=== PATIENT | male | born 1985 | race Caucasian/White ===

== ENCOUNTER 2018-07-08 12:01 | Emergency (ER) | payer MEDICARE, MEDICAID ==
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
--- OUTSIDE RECORDS SUMMARY | 2018-07-08 12:36 | XMS REPORT | Continuity of Care Document ---
:1985 External Reference #:[id number] Author Name Lorelei Abbasi PA-C Address [address] [place] [address] Care Team Providers Name Role Phone Aileen Thao DR. Care Team Information Billet Heater Unavailable Aileen Thao DR. Primary Care Physician Unavailable Payers Date Identification Numbers Payment Provider Subscriber Policy Number: [id number] [facility] Edin Vicente PayID: [id number] [address] [place] [address] Policy Number: [id number] Medicaid Only 21 And Over Edin Vicente PayID: [id number] [place] [address] Advance Directives Description No Information Available Problems Active Problems Provider Date Impacted cerumen Phillip Licona MD Onset: 11/21/2010 Dysfunction of eustachian tube Phillip Licona MD Onset: 11/21/2010 Middle ear conductive hearing loss Jec Test Onset: 11/21/2010 Sensorineural hearing loss Jec Test Onset: 11/21/2010 Family History Description No Information Available Social History Type Date Description Comments Sex Unknown Occupation Not Currently Working Tobacco Use Start: Unknown Never Smoked Cigarettes Tobacco Use Start: Unknown End: Unknown current.no Tobacco Use Start: Unknown End: Unknown current.no Smokeless Tobacco current.no ETOH Use Negative For Current Alcohol Use [Current Alcohol Use] Tobacco Use Start: Unknown Patient has never smoked Smoking Status Reviewed: 12/10/16 Patient has never smoked Allergies, Adverse Reactions, Alerts Active Allergies Reaction Severity Comments Date Amoxicillin 03/14/2009 Penicillins 03/14/2009 Tagamet 03/14/2009 Paxil 06/10/2017 Xanax 06/10/2017 Medications Active Medications SIG Qnty Indications Ordering Provider Date Anti-Dandruff daily Unknown 1% Shampoo Hydrocortisone as needed Unknown 1% Cream Triamcinolone Acetonide twice a day Unknown 0.1% Cream Ketotifen Fumarate 1 drop to both Unknown 0.025% eyes bid Solution Artificial Tears 1 drop to both Unknown Solution eyes bid Vicks Vaporub as directed Unknown Ointment Acetaminophen take as directed Unknown 325mg Tablets Varun-Gest Antacid 2 tabs PO qid prn Unknown 500mg Chewtabs Blistex as directed Unknown Stick [place] 3 as directed Unknown 1000mg Capsules Loratadine [address] po daily [address] 10mg Multivitamins 1 po daily Aileen Thao DR. Colace qod Aileen Thao DR. 100mg Vitamin D 1 tab po daily Aileen Thao DR. 2,000Units Erythromycin apply to face bid Aileen Thao DR. 2% Gel Hydrocerin Plus as directed Aileen Thao DR. Cream Bacitracin Ointment as needed Aileen Thao DR. Fluticasone Propionate as needed Aileen Thao DR. 50mcg/Act Suspension [place] Carbonate 2 caps tid [address]ileen Thao DR. 300mg Capsules Clonazepam 1 tab twice daily Aileen Thao DR. 0.5mg Tablets History Medications Lip-Guard apply to dry lips Aileen Thao DR. - Ointment twice a day 07/16/2016 Triamcinolone instill 2 sprays 16.5units Aileen Thao DR. - Acetonide into each nostril 12/14/2017 55mcg/Act once daily Inhaler Vascepa 1 po bid Aileen Thao DR. - 1gm Capsules 07/16/2016 Hydroxyzine HCL 1 by mouth 3-[address] - 25mg times a day as 12/14/2017 Tablets needed for itching Abilify 1 po daily Aileen Thao DR. - 5mg Tablets 07/16/2016 Tylenol 8 Hour prn for headache Aileen Thao DR. - 650mg 12/14/2017 Tablets ER Clonazepam 1 tab twice daily Aileen Thao DR. - 0.5-1mg 06/10/2017 Benzamycin Unknown - 5-3% Gel 10/04/2013 Vistaril Unknown - 25mg 01/26/[address] - 1mg 07/16/2016 Eucerin Unknown - 03/20/2010 Nasonex 2 sprays both 3months Unknown - 50mcg/Act nostrils once a 10/04/2013 Suspension day Paxil 2 tabs po daily Aileen Thao DR. - 30mg 07/16/2016 Concerta Unknown - 10/24/2009 Immunizations Description No Information Available Vital Signs Date Vital Result Comment 12/14/2017 10:03am Weight 148.00 lb Weight 67.133 kg Height 58.25 inches 4'10.25" Height in cm's 148.0 cm BMI (Body Mass Index) 30.7 kg/m2 12/10/2016 1:50pm BP Systolic 112 mmHg BP Diastolic 61 mmHg Heart Rate 68 /min Respiratory Rate 17 /min Weight 133.00 lb Weight 60.329 kg Height 58.25 inches 4'10.25" Height in cm's 148.0 cm BMI (Body Mass Index) 27.6 kg/m2 07/16/2016 9:37am BP Systolic 106 mmHg BP Diastolic 64 mmHg Heart Rate 85 /min Weight 162.00 lb Weight 73.483 kg Height 58.25 inches 4'10.25" Height in cm's 148.0 cm BMI (Body Mass Index) 33.6 kg/m2 01/31/2014 10:36am BP Systolic 116 mmHg BP Diastolic 77 mmHg Heart Rate 77 /min Respiratory Rate 16 /min Weight 162.00 lb Weight 73.483 kg Height 58.25 inches 4'10.25" Height in cm's 148.0 cm BMI (Body Mass Index) 33.6 kg/m2 10/04/2013 9:10am BP Systolic 108 mmHg BP Diastolic 74 mmHg Heart Rate 78 /min Respiratory Rate 16 /min Weight 162.00 lb Weight 73.483 kg Height 58.25 inches 4'10.25" Height in cm's 148.0 cm BMI (Body Mass Index) 33.6 kg/m2 04/05/2013 9:10am BP Systolic 129 mmHg BP Diastolic 83 mmHg Heart Rate 78 /min Respiratory Rate 16 /min Height 58.25 inches 4'10.25" Height in cm's 148.0 cm 01/26/2013 9:04am BP Systolic 123 mmHg BP Diastolic 73 mmHg Heart Rate 76 /min Respiratory Rate 16 /min Height 58.25 inches 4'10.25" Height in cm's 148.0 cm 09/29/2012 9:07am BP Systolic 116 mmHg BP Diastolic 83 mmHg Heart Rate 81 /min Respiratory Rate 16 /min Height 58.25 inches 4'10.25" Height in cm's 148.0 cm 03/14/2009 1:38pm BP Systolic 123 mmHg BP Diastolic 83 mmHg Heart Rate 82 /min Respiratory Rate 16 /min Results Description No Information Available Procedures Date Code Description Status 12/14/2017 77179 Removal Wax Impaction Completed 06/10/2017 89585 Tympanometry Completed 06/10/2017 14068 Comprehensive Audiogram Completed 12/10/2016 73511 Removal Wax Impaction Completed 06/11/2016 88204 Removal Wax Impaction Completed 12/12/2015 28437 Tympanometry Completed 12/12/2015 91192 Comprehensive Audiogram Completed 05/22/2015 26332 Removal Wax Impaction Completed 2015 35612 Tracheostomy Completed 04/05/2013 26772 Tympanometry Completed 04/05/2013 41310 Comprehensive Audiogram Completed 01/26/2013 13344 Removal Wax Impaction Completed 10/24/2009 65812 Tympanometry Completed 10/24/2009 70175 Comprehensive Audiogram Completed Encounters Type Date Location Provider Dx Diagnosis Office Visit 06/10/2017 Ronaldo,Cony Elliott H61.23 Impacted cerumen, 10:00a 02/15/07 MD Livan bilateral H90.6 Mixed conductive and sensorineural hearing loss, bilateral Office Visit 12/10/2016 1:30p Cony Higgins 02/15/07 Phillip Elliott H61.23 Tito Licona MD cerumen, bilateral Q90.9 Down syndrome, unspecified Office Visit 07/16/2016 [place],After Phillip Elliott R13.10 Dysphagia, 9:15a 02/15/07 MD Livan unspecified Q90.9 Down syndrome, unspecified Office Visit 12/12/2015 1:45p [place],After 02/15/07 Phillip Elliott H61.23 Impacted MD jorje Licona, bilateral H90.5 Unspecified sensorineural hearing loss H90.0 Conductive hearing loss, bilateral Office Visit 08/09/2014 2:15p [place],After 02/15/07 Phillipradha Elliott 380.4 Impacted MD Livan Cerumeyemi / Wax Office Visit 01/31/2014 10:15a [place],After 02/15/07 Phillipradha Elliott 380.4 Impacted MD Livan Cerumen / Wax Office Visit 10/04/2013 9:15a [place],After 02/15/07 Phillip Elliott 380.4 Impacted MD Livan Cerumen / Wax Office Visit 04/05/2013 9:00a [place],After 02/15/07 Phillipradha Elliott 380.4 Impacted MD Livan Cerumeyemi / Wax 389.10 Hearing Loss, Sensorineural/Unspecified 389.03 Hearing Loss, Conductive/Middle Ear Office Visit 09/29/2012 9:00a [place],After 02/15/07 Phillip Elliott 380.4 Impacted MD Livan Cerumen / Wax Office Visit 03/31/2012 9:00a [place],After 02/15/07 Phillipradha Elliott 380.4 Impacted MD Livan Cerumen / Wax Office Visit 09/24/2011 9:45a [facility],After 02/15/07 Phillipradha Elliott 380.4 Impacted MD Livan Cerumen / Wax Office Visit 03/26/2011 9:00a [place],After 02/15/07 Phillipradha Elliott 380.4 Impacted MD Livan Cerumen / Wax Office Visit 09/17/2010 10:15a [place],After 02/15/07 Phillipradha Elliott 380.4 Impacted MD Livan Cerumen / Wax Office Visit 03/20/2010 9:15a [place],After 02/15/07 Phillip Licona MD Office Visit 10/24/2009 9:30a [facility],After 02/15/07 Phillip Elliott 380.4 Impacted MD Jorje Licona / Dot 381.81 Dysfunction Of Eustachian Tube 389.03 Hearing Loss, Conductive/Middle Ear 389.10 Hearing Loss, Sensorineural/Unspecified Office Visit 04/18/2009 3:45p [place],After 02/15/07 Phillip Licona MD Office Visit 03/29/2009 9:00a [facility],After 02/15/07 Phillip Licona MD Office Visit 03/14/2009 1:30p [facility],After 02/15/07 Phillip Elliott 380.4 MD Ruthie Pittmanumen / Dot Plan of Treatment No Information Available
[2018-07-08 12:47] LABS: ABS Basophils 0.1 10^3/ul (0-0.2); ABS Lymphocytes 0.9 10^3/ul (1.0-4.8); ABS Monocytes 0.4 10^3/ul (0-0.8); ABS Neutrophils 7.5 10^3/ul (1.5-7.7); Eosinophil % 0.1 %; Hematocrit 44 % (42-52); Hemoglobin 14.8 g/dL (14.0-18.0); Lymphocyte % 10.2 %; Mean Corpuscular HGB Conc 34 g/dL (31-36); Mean Corpuscular Hemoglobin 33 pg (27-31); Mean Corpuscular Volume 98 fL (80-94); Mean Platelet Volume 6.7 fL (7.4-10.4); Platelet Count 416 10^3/uL (150-450); Red Blood Count 4.46 10^6 /uL (4.18-5.48); Red Cell Distribution Width 13 % (10.5-15); White Blood Count 8.9 10^3/uL (3.5-10.8)
[2018-07-08 13:07] LABS: ALT 17 U/L (7-52); AST 21 U/L (13-39); Albumin 4.7 g/dL (3.2-5.2); Albumin/Globulin Ratio 1.5 (1-3); Alkaline Phosphatase 86 U/L (34-104); Anion Gap 8 mmol/L (2-11); BUN/Creatinine Ratio 12.1 (8-20); Blood Urea Nitrogen 11 mg/dL (6-24); C Reactive Protein 8.79 mg/L (<8.01); CO2 Carbon Dioxide 28 mmol/L (22-32); Calcium 10.6 mg/dL (8.6-10.3); Chloride 102 mmol/L (101-111); EGFR African American 117.6 (>60); EGFR Non-African American 97.2 (>60); Globulin 3.2 g/dL (2-4); Glucose 114 mg/dL (70-100); Potassium 4.3 mmol/L (3.5-5.0); Sodium 138 mmol/L (135-145); Total Protein 7.9 g/dL (6.4-8.9)
[2018-07-08 13:17] LABS: Acetaminophen < 15 mcg/mL; Alcohol < 10 mg/dL (<10); Lithium 1.16 mmol/L (0.6-1.2); Salicylate < 2.50 mg/dL (<30)
[2018-07-08 13:31] LABS: TSH (Thyroid Stimulating Horm) 3.33 mcIU/mL (0.34-5.60)
[2018-07-08] MEDS ORDERED: Acetaminophen TAB* 325 MG PO ONE (17:26)
[2018-07-08] MEDS ORDERED: Lithium Carbonate TAB* 300 MG PO ONE (17:27)
[2018-07-08] MEDS ORDERED: diPHENhydraMINE IV* 50 MG/ML 1 ml VIAL (BENADRYL) IM ONE (18:14)
[2018-07-08] MEDS ORDERED: Haloperidol INJ IV/IM* 5 MG/ML AMP IM ONE (18:14)
[2018-07-08] MEDS ORDERED: Lorazepam PYXIS KEY PRN (18:15)
[2018-07-08] MEDS ORDERED: LORazepam INJ* 2 MG/ML 1 ML VIAL IM ONE (18:15)
[2018-07-08 22:58] VITALS: BP 93/52
== END 2018-07-08 22:55 | disposition home or self-care (01) ==
LOC: ED 12:01
DX: F39 Unspecified mood [affective] disorder (principal); R45.1 Restlessness and agitation; R51 Headache; R01.1 Cardiac murmur, unspecified; Q90.9 Down syndrome, unspecified; F41.9 Anxiety disorder, unspecified; F32.9 Major depressive disorder, single episode, unspecified; Z88.0 Allergy status to penicillin; Z88.8 Allergy status to other drugs, medicaments and biological substances
CPT/HCPCS: 36415; 71045; 80053; 80178; 80320; 80329; 84443; 85025; 86140; 96372; 99285; A9270-GY; G0480; J1200; J1630; J2060

== ENCOUNTER 2018-07-23 04:08 | Emergency (ER) | payer MEDICARE, MEDICAID ==
--- NOTE | 2018-07-23 04:24 | ED ---
Headache - HPI Summary HPI Summary: LEVEL 5 CAVEAT: HPI LIMITED DUE TO PT CONDITION, KEVIN'S A 33 y/o M brought in by ambulance presents to ED c/o SAUNDERS onset 1.5 weeks ago. Per caregiver: Patient has been complaining of SAUNDERS for 1.5 weeks. Hes been pulling his hair and has a red spot on his scalp first noticed today. He also has not been sleeping well for the past 1.5 weeks. Denies fever, dental pain. No witnessed trauma. At bedside, he states 'No' when asked if anything hurts. 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 Onset/Duration: Started weeks ago - 1.5 weeks Associated Signs And Symptoms: Other (Noted In Comments) - pos: SAUNDERS - Allergies/Home Medications Allergies/Adverse Reactions: Allergies Allergy/AdvReac Type Severity Reaction Status Date / Time alprazolam [From Xanax] Allergy Unknown Verified 07/08/18 12:16 Reaction Details cimetidine [From Tagamet] Allergy Unknown Verified 07/08/18 12:16 Reaction Details paroxetine [From Paxil] Allergy Unknown Verified 07/08/18 12:16 Reaction Details Penicillins Allergy Unknown Verified 07/08/18 12:16 Reaction Details PMH/Surg Hx/FS Hx/Imm Hx Previously Healthy: No Endocrine/Hematology History: Denies: Hx Anticoagulant Therapy, Hx Diabetes, Hx Thyroid Disease Cardiovascular History: Reports: Other Cardiovascular Problems/Disorders - HEART MURMUR Denies: Hx Congestive Heart Failure, Hx Deep Vein Thrombosis, Hx Hypertension , Hx Myocardial Infarction, Hx Pacemaker/ICD Respiratory History: Reports: Other Respiratory Problems/Disorders - RESP FAILURE 01/2015 Denies: Hx Asthma, Hx Chronic Obstructive Pulmonary Disease (COPD), Hx Lung Cancer, Hx Pneumonia, Hx Pulmonary Embolism GI History: Denies: Hx Gall Bladder Disease, Hx Gastrointestinal Bleed, Hx Ulcer, Hx Urosepsis History: Denies: Hx Kidney Stones, Hx Renal Disease Musculoskeletal History: Reports: Hx Scoliosis Sensory History: Reports: Hx Cataracts - removed as inmfant Opthamlomology History: Reports: Hx Cataracts - removed as inmfant Neurological History: Reports: Hx Developmental Delay - Downs syndrome Denies: Hx Dementia, Hx Migraine, Hx Seizures, Hx Transient Ischemic Attacks (TIA) Psychiatric History: Reports: Hx Anxiety, Hx Bipolar Disorder - He has aggression with this., Hx of Violent Episodes Against Others Denies: Hx Eating Disorder, Hx Depression, Hx Schizophrenia - Surgical History Surgery Procedure, Year, and Place: EYE IMPLANTS, thrach Infectious Disease History: No Infectious Disease History: Denies: Hx Hepatitis, Hx Human Immunodeficiency Virus (HIV), Hx of Known/ Suspected MRSA, Hx Tuberculosis, Hx Known/Suspected VRE, Traveled Outside the [place] in Last 30 Days - Family History Known Family History: Positive: Hypertension - father, Diabetes - father - Social History Occupation: Disabled Lives: Shelter Alcohol Use: None Hx Substance Use: No Substance Use Type: Reports: None Hx Tobacco Use: No Smoking Status (MU): Never Smoked Tobacco Review of Systems - ROS Summary Review of Systems Summary: LEVEL 5 CAVEAT: ROS LIMITED DUE TO PT CONDITION, DOWN'S Negative: Fever Positive: Headache All Other Systems Reviewed And Are Negative: No Physical Exam - Summary Physical Exam Summary: Appearance: Well appearing, no pain distress Skin: warm, dry, reflects adequate perfusion Head/face: Syndromic appearing consistent with Downs syndrome, no facial swelling, no jaw tenderness. Patch of alopecia on R apex, small area of erythema on skin, a few broken hairs, no tenderness when touching scalp. Patient will not allow oral exam. Eyes: ATIF, mild horizontal nystagmus ENT: mucous membranes moist Neck: supple, non-tender, no lymphadenopathy Respiratory: CTA, breath sounds present Cardiovascular: RRR, pulses symmetrical Abdomen: deferred Bowel Sounds: present Musculoskeletal: normal, strength/ROM intact Neuro: normal, sensory motor intact, A&Ox3 GCS: 14, patient is at baseline Triage Information Reviewed: Yes Vital Signs On Initial Exam: Initial Vitals Temp Pulse Resp BP Pulse Ox 98.6 F 75 18 146/94 94 07/23/18 04:10 07/23/18 04:10 07/23/18 04:10 07/23/18 04:10 07/23/18 04:10 Vital Signs Reviewed: Yes Diagnostics - Vital Signs Vital Signs Temp Pulse Resp BP Pulse Ox 07/23/18 04:10 98.6 F 75 18 146/94 94 - Laboratory Lab Statement: Any lab studies that have been ordered have been reviewed, and results considered in the medical decision making process. Headache Course/Dx - Course Course Of Treatment: Nurse's noted reviewed. Patient is comfortable without fever. He has no tenderness at the site of his hair pulling. His ears are negative and his jaw is nontender without adenopathy. He would not permit a dental exam. He would also not permit a CT scan which I would consider low yield. It is recommended that he be evaluated by a doctor that he knows and trusts that may be able to get a more complete exam. There is nothing that appears to be making him uncomfortable at this time. - Diagnoses Differential Diagnosis/HQI/PQRI: Other - Ear infection, dental infection, sinus infection, foreign body or tick bite, head injury Provider Diagnoses: Trichotillomania, Down syndrome, Headache Discharge - Sign-Out/Discharge Documenting (check all that apply): Patient Departure - D/C Patient Received Moderate/Deep Sedation with Procedure: No - Discharge Plan Condition: Improved Disposition: HOME Patient Education Materials: Down Syndrome (DC), Acute Headache (ED) Referrals: Aileen Richards MD [Primary Care Provider] - Additional Instructions: Try distraction techniques in terms of him pulling on his hair. Ibuprofen as needed. Return with fevers, vomiting, pain, new symptoms or other concerns. Follow up promptly with his primary care doctor on Wednesday. - Billing Disposition and Condition Condition: IMPROVED Disposition: Home - Attestation Statements Document Initiated by Mitesh: Yes Documenting Scribe: Elle Mcdermott Provider For Whom Mitesh is Documenting (Include Credential): Dr. Edwardo Chan MD Scribe Attestation: Elle Marie scribed for Dr. Edwardo Chan MD on 07/23/18 at 0509. Scribe Documentation Reviewed: Yes Provider Attestation: The documentation as recorded by the Elle santoro accurately reflects the service I personally performed and the decisions made by me, Dr. Edwardo Chan MD Status of [place] Document: Viewed
[2018-07-23] MEDS ORDERED: Lidocaine 2.5%/Prilocain 2.5%* 5 GM TUBE TOPICAL ONE (04:29)
[2018-07-23] MEDS ORDERED: Ibuprofen PED LIQ 100 MG/5 ML UDC PO ONE (04:29)
[2018-07-23 04:54] VITALS: BP 0/0
== END 2018-07-23 04:53 | disposition home or self-care (01) ==
LOC: ED 04:08
DX: R51 Headache (principal); F63.3 Trichotillomania; Q90.9 Down syndrome, unspecified; Z88.0 Allergy status to penicillin; Z88.8 Allergy status to other drugs, medicaments and biological substances
CPT/HCPCS: 99282; A9270-GY

== ENCOUNTER 2019-01-13 17:24 | Emergency (ER) | payer MEDICARE ==
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
[2019-01-13 19:02] VITALS: BP 131/83
[2019-01-13] MEDS ORDERED: LORazepam TAB(*) 1 MG PO ONE (19:33)
--- OUTSIDE RECORDS SUMMARY | 2019-01-17 15:13 | XMS REPORT | Continuity of Care Document ---
:1985 External Reference #:[id number] Author Name Waldo Benton M.D. Address [address] [place] [address] Care Team Providers Name Role Phone Aileen Valderrama M.D. Care Team Information Web Manager [phone] Problems Active Problems Provider Date Pure hypercholesterolemia Waldo eBnton M.D. Onset: 01/05/2019 Other adverse food reactions, not elsewhere Waldo Benton M.D. Onset: 2018 classified, subsequent encounter Adverse effect of penicillins, initial encounter Waldo Benton M.D. Onset: Allergic rhinitis due to pollen Wlado Benton M.D. Onset: 01/05/2019 Social History Type Date Description Comments Sex Unknown ETOH Use Denies alcohol use Tobacco Use Start: Unknown Patient has never smoked Recreational Drug Use Denies Drug Use Allergies, Adverse Reactions, Alerts Active Allergies Reaction Severity Comments Date Amoxicillin Unknown 01/05/2019 Tagamet 01/05/2019 Penicillin 01/05/2019 Paxil serotonin syndrome 01/05/2019 Xanax 01/05/2019 Haldol 01/05/2019 Medications Active Medications SIG Qnty Indications Ordering Provider Date Bacitracin (External) Unknown 500Unit/GM Ointment Varun-Gest Antacid Unknown 500mg Chewtabs Tylenol 8 Hour 325mg bid every 6 Unknown 650mg hours as needed Tablets ER Mucinex 2 by mouth every Unknown 600mg Tablets ER 12 hours 12HR Anti-Dandruff Unknown 1% Shampoo [place] Carbonate Unknown 300mg Capsules Vitamin D3 Unknown 50mcg (2000 Ut) Capsules Loratadine take one 10 mg Unknown 10mg Capsules tab daily Lamotrigine bid Unknown 25mg Tablets Immunizations CPT Code Status Date Vaccine Lot # [id number] Given Unknown Influenza Virus Vaccine, Quadrivalent, Split, Preservative Free 28153 Given Unknown Pneumococcal Conjugate Vaccine 13 Valent For Intramuscular Use Vital Signs Date Vital Result Comment 01/05/2019 1:48pm Height 57 inches 4'9" Weight 136.00 lb Weight 61.690 kg Respiratory Rate 18 /min Heart Rate 65 /min O2 % BldC Oximetry 97 % BP Systolic 107 mmHg BP Diastolic 66 mmHg BMI (Body Mass Index) 29.4 kg/m2 Results Description No Information Available Procedures Description No Information Available Medical Devices Description No Information Available Encounters Type Date Location Provider Dx Diagnosis Office Visit 01/05/2019 [facility] Waldo Benton M.D. J30.1 Allergic rhinitis 1:20p due to pollen T36.0x5A Adverse effect of penicillins, initial encounter T78.1xxD Oth adverse food reactions, not elsewhere classified, subs Assessments Date Code Description Provider 01/05/2019 J30.1 Allergic rhinitis due to pollen Waldo Benton M.D. 01/05/2019 T36.0x5A Adverse effect of penicillins, initial Waldo Benton M.D. encounter 01/05/2019 T78.1xxD Other adverse food reactions, not elsewhere Waldo Benton M.D. classified, subsequent encounter Plan of Treatment No Information Available Functional Status Description No Information Available Mental Status Description No Information Available Referrals Description No Information Available
== END 2019-01-13 22:00 | disposition home or self-care (01) ==
LOC: ED 17:24
DX: R45.1 Restlessness and agitation (principal); Q90.9 Down syndrome, unspecified; F84.0 Autistic disorder; F41.9 Anxiety disorder, unspecified; F31.9 Bipolar disorder, unspecified; Z88.0 Allergy status to penicillin; Z88.8 Allergy status to other drugs, medicaments and biological substances
CPT/HCPCS: 99282; A9270-GY

== ENCOUNTER 2019-02-05 22:39 | Emergency (ER) | payer MEDICARE ==
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
[2019-02-05] MEDS: LORazepam TAB(*) 1 MG PO ONE ×2 (23:33→23:59)
[2019-02-05] MEDS ORDERED: Lorazepam PYXIS KEY ONE (23:46)
[2019-02-05] MEDS ORDERED: LORazepam INJ* 2 MG/ML 1 ML VIAL ONE (23:46)
[2019-02-05] MEDS ORDERED: LORazepam INJ* 2 MG/ML 1 ML VIAL IM ONE ×2 (23:50→23:51)
[2019-02-05] MEDS ORDERED: Lorazepam PYXIS KEY PRN (23:51)
[2019-02-06] MEDS ORDERED: Acetaminophen TAB* 325 MG PO ONE (00:19)
[2019-02-06 01:23] VITALS: BP 128/85
== END 2019-02-06 01:22 | disposition home or self-care (01) ==
LOC: ED 22:39
DX: R51 Headache (principal); Q90.9 Down syndrome, unspecified; F79 Unspecified intellectual disabilities; F31.9 Bipolar disorder, unspecified; Z88.0 Allergy status to penicillin; Z88.8 Allergy status to other drugs, medicaments and biological substances
CPT/HCPCS: 96372; 99283; A9270-GY; J2060

== ENCOUNTER 2019-02-20 12:43 | Emergency (ER) | payer MEDICARE, MEDICAID ==
[2019-02-20 13:11] VITALS: BP 00/00
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
[2019-02-20] MEDS ORDERED: Tetan/Diph/Pertus SYR(Tdap)* 0.5 ML SYR(BOOSTRIX) use SYR contains LATEX IM ONE (13:43)
== END 2019-02-20 14:04 | disposition home or self-care (01) ==
LOC: UCEAST 12:43
DX: S49.91XA Unspecified injury of right shoulder and upper arm, initial encounter (principal); Z88.8 Allergy status to other drugs, medicaments and biological substances; Z88.0 Allergy status to penicillin; Z91.041 Radiographic dye allergy status
CPT/HCPCS: 90715; 99211; G0463

== ENCOUNTER 2019-08-21 09:43 | Observation (INO) ==
[2019-08-21 10:14] LABS: ABS Basophils 0.1 10^3/ul (0-0.2); ABS Eosinophils 0.1 10^3/ul (0-0.6); ABS Lymphocytes 1.7 10^3/ul (1.0-4.8); ABS Monocytes 0.7 10^3/ul (0-0.8); Eosinophil % 0.7 %; Hematocrit 46 % (42-52); Hemoglobin 15.5 g/dL (14.0-18.0); Lymphocyte % 12.7 %; Mean Corpuscular HGB Conc 34 g/dL (31-36); Mean Corpuscular Hemoglobin 33 pg (27-31); Mean Corpuscular Volume 98 fL (80-94); Mean Platelet Volume 6.6 fL (7.4-10.4); Platelet Count 429 10^3/uL (150-450); Red Blood Count 4.63 10^6 /uL (4.18-5.48); Red Cell Distribution Width 14 % (10-15); White Blood Count 13.4 10^3/uL (3.5-10.8)
[2019-08-21] MEDS ORDERED: Sterile Water for Inj 10 ML ONE (10:20)
[2019-08-21 10:27] LABS: ALT 22 U/L (7-52); AST 25 U/L (13-39); Albumin 4.8 g/dL (3.2-5.2); Albumin/Globulin Ratio 1.5 (1-3); Alkaline Phosphatase 120 U/L (34-104); Anion Gap 10 mmol/L (2-11); BUN/Creatinine Ratio 13.2 (8-20); Blood Urea Nitrogen 15 mg/dL (6-24); CO2 Carbon Dioxide 26 mmol/L (22-32); Calcium 10.5 mg/dL (8.6-10.3); Chloride 101 mmol/L (101-111); EGFR African American 90.1 (>60); EGFR Non-African American 74.4 (>60); Globulin 3.2 g/dL (2-4); Glucose 128 mg/dL (70-100); Potassium 4.4 mmol/L (3.5-5.0); Sodium 137 mmol/L (135-145)
[2019-08-21 10:59] LABS: Alcohol, S < 10 mg/dL (<10); Salicylate < 2.50 mg/dL (<30)
[2019-08-21] MEDS ORDERED: NS 0.9% 1000 ml BAG 1,000 ML IV ONE (11:01)
[2019-08-21 11:04] LABS: Acetaminophen < 15 mcg/mL
[2019-08-21 11:09] LABS: TSH (Thyroid Stimulating Horm) 6.27 mcIU/mL (0.34-5.60)
[2019-08-21 11:45] LABS: Urine Appearance Clear; Urine Bilirubin Negative (Negative); Urine Blood Negative (Negative); Urine Color Yellow; Urine Glucose Negative (Negative); Urine Ketones Trace (Negative); Urine Nitrite Negative (Negative); Urine Protein 1+(30 mg/dL) (Negative); Urine Specific Gravity 1.014 (1.010-1.030); Urine Urobilinogen Negative (Negative)
[2019-08-21 11:47] LABS: Urine Bacteria Absent (Absent); Urine Red Blood Cell Trace(0-2/hpf) (Absent); Urine Squamous Epithelial Cell Present (Absent); Urine White Blood Cell Trace(0-5/hpf) (Absent)
[2019-08-21 12:00] LABS: Urine Benzodiazepine Screen Presumptive Positive (None Detect); Urine Opiates Screen None Detected (None Detect)
[2019-08-21] MEDS ORDERED: diPHENhydraMINE IV 50 MG/ML 1 ml VIAL (BENADRYL) SLOW PUSH ONE (12:23)
[2019-08-21] MEDS ORDERED: Lorazepam PYXIS KEY PRN ×2 (13:54→21:56)
[2019-08-21] MEDS ORDERED: LORazepam 2 mg VIAL 1 ml IM ONE (13:54)
[2019-08-21] MEDS ORDERED: Lorazepam PYXIS KEY ONE (13:56)
[2019-08-21] MEDS ORDERED: LORazepam 2 mg VIAL 1 ml ONE (13:57)
[2019-08-21] MEDS ORDERED: Ondansetron 4 mg VIAL 2 MG/ML 2 ml VIAL IV PRN (17:37)
[2019-08-21] MEDS ORDERED: Senna TAB 8.6 mg TAB PO PRN (17:37)
[2019-08-21] MEDS ORDERED: NS 0.9% 1000 ml BAG 1,000 ML IV SCH (17:45)
[2019-08-21] MEDS ORDERED: LORazepam 1 mg TAB (*) PO PRN (18:03)
[2019-08-21 19:05] LABS: Free T4 0.97 ng/dL (0.61-1.12)
[2019-08-21] MEDS ORDERED: LORazepam 2 mg VIAL 1 ml IV PUSH ONE (21:56)
[2019-08-21] MEDS: LORazepam 1 mg TAB (*) PO SCH (22:01)
[2019-08-21] MEDS: lamoTRIgine 25 mg TAB (*) PO SCH (22:02)
[2019-08-21] MEDS: CMC:Lithium Carb ER 300 mg TAB(NF) PO SCH (22:31)
[2019-08-22 08:20] VITALS: BP 136/74
[2019-08-22] MEDS ORDERED: Fluticasone NASAL SPRAY 50MCG 16 gm SPRAY BTL BOTH NARES SCH (09:00)
[2019-08-22] MEDS ORDERED: Multivitamins/Minerals TAB PO SCH (09:00)
[2019-08-22] MEDS: lamoTRIgine 25 mg TAB (*) PO SCH (09:30)
[2019-08-22] MEDS: CMC:Lithium Carb ER 300 mg TAB(NF) PO SCH (09:31)
[2019-08-22] MEDS: LORazepam 1 mg TAB (*) PO SCH (09:32)
[2019-08-22 10:16] LABS: ABS Basophils 0.1 10^3/ul (0-0.2); ABS Eosinophils 0.3 10^3/ul (0-0.6); ABS Lymphocytes 1.2 10^3/ul (1.0-4.8); ABS Monocytes 0.6 10^3/ul (0-0.8); Eosinophil % 2.5 %; Hematocrit 46 % (42-52); Hemoglobin 15.1 g/dL (14.0-18.0); Lymphocyte % 11.2 %; Mean Corpuscular HGB Conc 33 g/dL (31-36); Mean Corpuscular Hemoglobin 34 pg (27-31); Mean Corpuscular Volume 103 fL (80-94); Mean Platelet Volume 6.6 fL (7.4-10.4); Platelet Count 319 10^3/uL (150-450); Red Blood Count 4.49 10^6 /uL (4.18-5.48); Red Cell Distribution Width 14 % (10-15); White Blood Count 10.4 10^3/uL (3.5-10.8)
[2019-08-22 10:31] LABS: Chloride 106 mmol/L (101-111); Sodium 130 mmol/L (135-145)
[2019-08-22] MEDS ORDERED: Lorazepam PYXIS KEY PRN (12:16)
[2019-08-22] MEDS ORDERED: LORazepam 2 mg VIAL 1 ml IV PUSH ONE (12:16)
== END 2019-08-22 13:45 | disposition home or self-care (01) ==
LOC: MED 09:43 → ED 09:43 → MED 18:41
PROVIDERS: ADMIT Hospitalist; ATTEND Internal Medicine

== ENCOUNTER 2020-04-12 09:42 | Inpatient (IN) ==
[2020-04-12] MEDS ORDERED: cefTRIAXone 1 gm/50 mL NS BAG 1 GM/50 ML BAG IV ONE (10:20)
[2020-04-12] MEDS ORDERED: NS 0.9% 1000 ml BAG 1,000 ML IV.FLUID IV ONE (10:20)
[2020-04-12] MEDS ORDERED: Azithromycin 500 mg/250 ml NS 500 MG/250 ML BAG IVPB ONE (10:20)
[2020-04-12 12:29] LABS: ABS Basophils 0.1 10^3/ul (0-0.2); ABS Eosinophils 0.2 10^3/ul (0-0.6); ABS Lymphocytes 1.3 10^3/ul (1.0-4.8); ABS Monocytes 0.9 10^3/ul (0-0.8); ABS Neutrophils 12.3 10^3/ul (1.5-7.7); Eosinophil % 1.1 %; Hematocrit 39 % (42-52); Hemoglobin 12.9 g/dL (14.0-18.0); Lymphocyte % 8.7 %; Mean Corpuscular HGB Conc 33 g/dL (31-36); Mean Corpuscular Hemoglobin 33 pg (27-31); Mean Corpuscular Volume 98 fL (80-94); Mean Platelet Volume 6.5 fL (7.4-10.4); Platelet Count 574 10^3/uL (150-450); Red Blood Count 3.96 10^6 /uL (4.18-5.48); Red Cell Distribution Width 13 % (10-15); White Blood Count 14.8 10^3/uL (3.5-10.8)
[2020-04-12 12:37] LABS: INR 1.16 (0.82-1.09)
[2020-04-12 12:49] LABS: Troponin I 0.01 ng/mL (<0.03)
[2020-04-12 13:06] LABS: Albumin 3.7 g/dL (3.2-5.2); Albumin/Globulin Ratio 1.1 (1-3); BUN/Creatinine Ratio 10.2 (8-20); C Reactive Protein 192.52 mg/L (<8.01); Calcium 9.7 mg/dL (8.6-10.3); EGFR African American 120.7 (>60); EGFR Non-African American 99.7 (>60); Globulin 3.5 g/dL (2-4); Total Bilirubin 0.3 mg/dL (0.2-1.0); Total Protein 7.2 g/dL (6.4-8.9)
[2020-04-12] MEDS ORDERED: Iohexol 300 (CONTRAST) 10 ML SDV IV ONE (14:54)
[2020-04-12] MEDS ORDERED: Calcium Carb (TUMS) 500 mg CHEW TAB PO PRN (15:15)
[2020-04-12] MEDS ORDERED: HYDROCORTISONE 1% TOPICAL PRN (15:15)
[2020-04-12] MEDS ORDERED: Bacitracin OINTMENT PAK TOPICAL PRN (15:15)
[2020-04-12] MEDS ORDERED: diPHENhydraMINE 25 mg TAB PO PRN (15:15)
[2020-04-12 16:41] LABS: Lithium 0.66 mmol/L (0.6-1.2)
[2020-04-12 16:55] LABS: Urine Appearance Clear; Urine Bilirubin Negative (Negative); Urine Blood Negative (Negative); Urine Color Colorless; Urine Glucose Negative (Negative); Urine Ketones Negative (Negative); Urine Nitrite Negative (Negative); Urine Protein Negative (Negative); Urine Specific Gravity 1.011 (1.010-1.030); Urine Urobilinogen Negative (Negative)
[2020-04-12] MEDS: CMC:Lithium Carb ER 300 mg TAB(NF) PO SCH (21:29)
[2020-04-12] MEDS: CAMPHOR TOPICAL SCH (21:42)
[2020-04-12] MEDS: MENTHOL TOPICAL SCH (21:42)
[2020-04-12] MEDS: ERYTHROMYCIN TOPICAL SCH (21:42)
[2020-04-12] MEDS: EUCALYPTUS OIL TOPICAL SCH (21:42)
[2020-04-12] MEDS: Triamcinolone 0.025% OINT 15 GM TUBE TOPICAL SCH (21:43)
[2020-04-12] MEDS: MOISTURIZING TOPICAL SCH (21:43)
[2020-04-12] MEDS: HYDROcodone/ACETAMIN 5/325 mg TAB PO PRN (22:29)
[2020-04-13] MEDS: HYDROcodone/ACETAMIN 5/325 mg TAB PO PRN (04:15)
[2020-04-13] MEDS ORDERED: Ondansetron 4 mg VIAL 2 MG/ML 2 ml VIAL IV PRN (07:26)
[2020-04-13] MEDS: Cholecalciferol (VIT D3) 1,000 unit TAB PO SCH (09:58)
[2020-04-13] MEDS: CMC:Lithium Carb ER 300 mg TAB(NF) PO SCH ×3 (09:58→22:41)
[2020-04-13] MEDS: ERYTHROMYCIN TOPICAL SCH ×2 (10:15→23:08)
[2020-04-13] MEDS ORDERED: Etomidate 40 mg/20 ml (2 MG/ML) 20 ml VIAL (40 mg) ONE (12:12)
[2020-04-13] MEDS ORDERED: fentaNYL 250 mcg/5 ml 50 MCG/ML 5 ml VIAL (250 MCG) ONE (12:12)
[2020-04-13] MEDS: Fluticasone NASAL SPRAY 50MCG 16 gm SPRAY BTL BOTH NARES SCH (15:08)
[2020-04-13] MEDS: MOISTURIZING TOPICAL SCH ×2 (15:09→23:08)
[2020-04-13] MEDS: Triamcinolone 0.025% OINT 15 GM TUBE TOPICAL SCH ×2 (15:11→23:08)
[2020-04-13] MEDS ORDERED: cefTRIAXone 2 GM ADDV.VIAL 2 GM in NS 0.9% 100 ml BAG 100 ML IVPB ONE (15:13)
[2020-04-13] MEDS: Azithromycin 500 mg/250 ml NS 500 MG/250 ML BAG IVPB SCH (15:13)
[2020-04-13] MEDS: cefTRIAXone 2 GM ADDV.VIAL 2 GM in NS 0.9% 100 ml BAG 100 ML IVPB SCH (17:22)
[2020-04-13] MEDS ORDERED: Albuterol HFA INHALER 8 gm MDI INH PRN (18:13)
[2020-04-13] MEDS ORDERED: Furosemide 20 mg/2 ml IV VIAL IV SLOW PU ONE (18:13)
[2020-04-13] MEDS: Enoxaparin 40 MG/0.4 ML SYR SUBCUT SCH ×3 (18:44→22:42)
[2020-04-13] MEDS: CAMPHOR TOPICAL SCH (23:08)
[2020-04-13] MEDS: MENTHOL TOPICAL SCH (23:08)
[2020-04-13] MEDS: EUCALYPTUS OIL TOPICAL SCH (23:08)
[2020-04-14] MEDS: HYDROcodone/ACETAMIN 5/325 mg TAB PO PRN ×2 (03:35→09:13)
[2020-04-14] MEDS: Albuterol 2.5mg/3 ml (0.083%) NEB.SOLN INH PRN ×2 (03:51→07:33)
[2020-04-14] MEDS ORDERED: Morphine 2 MG/ML SYRINGE IV ONE (05:30)
[2020-04-14 06:41] LABS: ABS Basophils 0.2 10^3/ul (0-0.2); ABS Eosinophils 0.1 10^3/ul (0-0.6); ABS Lymphocytes 0.6 10^3/ul (1.0-4.8); ABS Monocytes 0.5 10^3/ul (0-0.8); ABS Neutrophils 18.5 10^3/ul (1.5-7.7); Eosinophil % 0.3 %; Hematocrit 39 % (42-52); Hemoglobin 13.3 g/dL (14.0-18.0); Mean Corpuscular HGB Conc 34 g/dL (31-36); Mean Corpuscular Hemoglobin 33 pg (27-31); Mean Corpuscular Volume 97 fL (80-94); Mean Platelet Volume 6.7 fL (7.4-10.4); Platelet Count 591 10^3/uL (150-450); Red Blood Count 4.03 10^6 /uL (4.18-5.48); Red Cell Distribution Width 14 % (10-15); White Blood Count 19.8 10^3/uL (3.5-10.8)
[2020-04-14 07:06] LABS: BUN/Creatinine Ratio 16.3 (8-20); Calcium 9.1 mg/dL (8.6-10.3); EGFR African American 99.5 (>60); EGFR Non-African American 82.2 (>60); Potassium 4.5 mmol/L (3.5-5.0)
[2020-04-14] MEDS: CMC:Lithium Carb ER 300 mg TAB(NF) PO SCH ×3 (07:54→21:27)
[2020-04-14] MEDS: Cholecalciferol (VIT D3) 1,000 unit TAB PO SCH (07:54)
[2020-04-14] MEDS: Fluticasone NASAL SPRAY 50MCG 16 gm SPRAY BTL BOTH NARES SCH (07:57)
[2020-04-14] MEDS: ERYTHROMYCIN TOPICAL SCH ×2 (07:58→21:23)
[2020-04-14] MEDS: MOISTURIZING TOPICAL SCH (08:14)
[2020-04-14] MEDS: Triamcinolone 0.025% OINT 15 GM TUBE TOPICAL SCH (08:14)
[2020-04-14] MEDS ORDERED: fentaNYL 250 mcg/5 ml 50 MCG/ML 5 ml VIAL (250 MCG) ONE (11:55)
[2020-04-14] MEDS ORDERED: Succinylcholine 200 mg VIAL 20 mg/ml 10 ml VIAL (200 mg) ONE (11:56)
[2020-04-14] MEDS ORDERED: Propofol 10 mg/ml 100 ML BTL 100 ML ONE (11:56)
[2020-04-14] MEDS ORDERED: Lactated Ringers 500 ml BAG 500 ML IV ONE ×2 (12:38→19:00)
[2020-04-14] MEDS ORDERED: [UNRECOGNIZED DRUG - OTHER] IV ONE ×2 (12:40→23:59)
[2020-04-14] MEDS ORDERED: FENTANYL IV ONE ×2 (12:40→23:59)
[2020-04-14] MEDS: fentaNYL INFUSION 50 MCG/ML 2,500 MCG/50 ML BAG IV SCH (12:44)
[2020-04-14] MEDS: Propofol 10 mg/ml 100 ML BTL 100 ML IV SCH ×2 (12:49→21:11)
[2020-04-14] MEDS: Albuterol 2.5mg/3 ml (0.083%) NEB.SOLN INH SCH ×2 (13:06→18:56)
[2020-04-14] MEDS ORDERED: fentaNYL 100 mcg/2 ml 50 MCG/ML VIAL ONE (13:35)
[2020-04-14 13:48] LABS: Urine Appearance Cloudy; Urine Bilirubin Negative (Negative); Urine Blood Negative (Negative); Urine Color Yellow; Urine Glucose Negative (Negative); Urine Ketones Negative (Negative); Urine Nitrite Negative (Negative); Urine Protein 2+(100 mg/dL) (Negative); Urine Specific Gravity 1.025 (1.010-1.030); Urine Urobilinogen Negative (Negative)
[2020-04-14] MEDS: Rocuronium 50 mg VIAL 10 mg/ml 5 ml VIAL (50 mg) ONE (13:50)
[2020-04-14 13:51] LABS: Urine Bacteria Absent (Absent); Urine Red Blood Cell Trace(0-2/hpf) (Absent); Urine White Blood Cell Trace(0-5/hpf) (Absent)
[2020-04-14] MEDS ORDERED: Chlorhexidine MOUTHWASH 0.12% 15 ML UDC SWISH SPIT SCH (14:00)
[2020-04-14] MEDS ORDERED: Norepinephrine 16MCG/ML IVPRE 4,000 MCG/250 ML BAG IV ONE (14:01)
[2020-04-14] MEDS: Norepinephrine 16MCG/ML IVPRE 4,000 MCG/250 ML BAG IV SCH ×5 (14:03→22:32)
[2020-04-14] MEDS ORDERED: Lactated Ringers 1000 ml BAG 1,000 ML IV ONE (14:15)
[2020-04-14] MEDS: Azithromycin 500 mg/250 ml NS 500 MG/250 ML BAG IVPB SCH (16:10)
[2020-04-14] MEDS: Pantoprazole VIAL 40 MG VIAL IV SCH (16:10)
[2020-04-14] MEDS: cefTRIAXone 2 GM ADDV.VIAL 2 GM in NS 0.9% 100 ml BAG 100 ML IVPB SCH (17:25)
[2020-04-14 17:37] LABS: Hematocrit 39 % (42-52); Hemoglobin 12.8 g/dL (14.0-18.0); Mean Corpuscular HGB Conc 33 g/dL (31-36); Mean Corpuscular Hemoglobin 32 pg (27-31); Mean Corpuscular Volume 98 fL (80-94); Mean Platelet Volume 6.9 fL (7.4-10.4); Platelet Count 653 10^3/uL (150-450); Red Blood Count 3.97 10^6 /uL (4.18-5.48); Red Cell Distribution Width 14 % (10-15); White Blood Count 29.1 10^3/uL (3.5-10.8)
[2020-04-14 17:40] LABS: ABS Basophils 0.1 10^3/ul (0-0.2); ABS Eosinophils 0.1 10^3/ul (0-0.6); ABS Lymphocytes 1.2 10^3/ul (1.0-4.8); ABS Monocytes 1.1 10^3/ul (0-0.8); ABS Neutrophils 26.6 10^3/ul (1.5-7.7); Eosinophil % 0.3 %; Lymphocyte % 4.2 %
[2020-04-14 17:47] LABS: BUN/Creatinine Ratio 10.7 (8-20); Calcium 8.3 mg/dL (8.6-10.3); EGFR African American 45.5 (>60); EGFR Non-African American 37.6 (>60)
[2020-04-14 18:04] LABS: Potassium 5.5 mmol/L (3.5-5.0)
[2020-04-14 18:44] LABS: Body Fluid Source Pleural Fluid
[2020-04-14] MEDS ORDERED: Albumin Human 5% 12.5 GM/250 ML BTL IV ONE (19:00)
[2020-04-14 19:34] LABS: Body Fluid Mono 5 %
[2020-04-14] MEDS: Enoxaparin 40 MG/0.4 ML SYR SUBCUT SCH (20:37)
[2020-04-14] MEDS: Meropenem 1 GM PREMIX 1 GM/50 ML BAG IV SCH (21:19)
[2020-04-14] MEDS: CAMPHOR TOPICAL SCH (21:22)
[2020-04-14] MEDS: EUCALYPTUS OIL TOPICAL SCH (21:22)
[2020-04-14] MEDS: MENTHOL TOPICAL SCH (21:22)
[2020-04-14] MEDS: Hydrocortisone INJ 100 MG/2ML 2 ML VIAL IV SCH (21:27)
[2020-04-14] MEDS: Chlorhexidine MOUTHWASH 0.12% 15 ML UDC SWISH SPIT SCH (21:39)
[2020-04-15] MEDS: fentaNYL INFUSION 50 MCG/ML 2,500 MCG/50 ML BAG IV SCH ×2 (00:11→16:10)
[2020-04-15] MEDS: Norepinephrine 16MCG/ML IVPRE 4,000 MCG/250 ML BAG IV SCH ×8 (00:27→22:52)
[2020-04-15] MEDS: Albuterol 2.5mg/3 ml (0.083%) NEB.SOLN INH SCH ×4 (00:39→19:13)
[2020-04-15] MEDS: Chlorhexidine MOUTHWASH 0.12% 15 ML UDC SWISH SPIT SCH ×5 (01:52→20:58)
[2020-04-15 04:40] LABS: Hematocrit 37 % (42-52); Hemoglobin 12.2 g/dL (14.0-18.0); Mean Corpuscular HGB Conc 33 g/dL (31-36); Mean Corpuscular Hemoglobin 33 pg (27-31); Mean Corpuscular Volume 98 fL (80-94); Mean Platelet Volume 6.9 fL (7.4-10.4); Platelet Count 609 10^3/uL (150-450); Red Blood Count 3.74 10^6 /uL (4.18-5.48); Red Cell Distribution Width 14 % (10-15)
[2020-04-15 04:56] LABS: Albumin 2.9 g/dL (3.2-5.2); BUN/Creatinine Ratio 12.9 (8-20); Calcium 8.4 mg/dL (8.6-10.3); EGFR African American 59.3 (>60); Globulin 2.9 g/dL (2-4); Total Bilirubin 0.7 mg/dL (0.2-1.0); Total Protein 5.8 g/dL (6.4-8.9)
[2020-04-15 04:57] LABS: Potassium 5.1 mmol/L (3.5-5.0)
[2020-04-15] MEDS: Propofol 10 mg/ml 100 ML BTL 100 ML IV SCH ×4 (06:36→21:22)
[2020-04-15] MEDS ORDERED: Albuterol/Ipratropium NEB.SOL (2.5/0.5 MG) 3 ML NEB.SOLN ONE (07:25)
[2020-04-15] MEDS: Albuterol/Ipratropium NEB.SOL (2.5/0.5 MG) 3 ML NEB.SOLN INH PRN (07:27)
[2020-04-15] MEDS: ERYTHROMYCIN TOPICAL SCH (07:53)
[2020-04-15] MEDS: CMC:Lithium Carb ER 300 mg TAB(NF) PO SCH (07:53)
[2020-04-15] MEDS: Meropenem 1 GM PREMIX 1 GM/50 ML BAG IV SCH ×2 (07:55→20:00)
[2020-04-15] MEDS ORDERED: Rocuronium 50 mg VIAL 10 mg/ml 5 ml VIAL (50 mg) ONE (08:39)
[2020-04-15] MEDS: Rocuronium 50 mg VIAL 10 mg/ml 5 ml VIAL (50 mg) ONE (08:40)
[2020-04-15] MEDS: Fluticasone NASAL SPRAY 50MCG 16 gm SPRAY BTL BOTH NARES SCH (08:50)
[2020-04-15] MEDS: Pantoprazole VIAL 40 MG VIAL IV SCH (09:35)
[2020-04-15] MEDS: Hydrocortisone INJ 100 MG/2ML 2 ML VIAL IV SCH ×2 (09:35→20:57)
[2020-04-15] MEDS ORDERED: Perflutren Lipid Microsphere 3 ML VIAL ONE (11:41)
[2020-04-15] MEDS ORDERED: Iodixanol (CONTRAST) 320 MG/ML 100 ML SDV IV ONE (13:18)
[2020-04-15] MEDS: Azithromycin 500 mg/250 ml NS 500 MG/250 ML BAG IVPB SCH (14:30)
[2020-04-15] MEDS ORDERED: Chlorhexidine MOUTHWASH 0.12% 15 ML UDC SWISH SPIT SCH (16:00)
[2020-04-15] MEDS: Enoxaparin 40 MG/0.4 ML SYR SUBCUT SCH (20:57)
[2020-04-16] MEDS: Norepinephrine 16MCG/ML IVPRE 4,000 MCG/250 ML BAG IV SCH ×4 (02:00→20:28)
[2020-04-16] MEDS: Chlorhexidine MOUTHWASH 0.12% 15 ML UDC SWISH SPIT SCH ×6 (02:12→21:23)
[2020-04-16] MEDS: Albuterol 2.5mg/3 ml (0.083%) NEB.SOLN INH SCH ×4 (02:36→19:37)
[2020-04-16 04:40] LABS: Hematocrit 30 % (42-52); Hemoglobin 10.6 g/dL (14.0-18.0); Mean Corpuscular HGB Conc 35 g/dL (31-36); Mean Corpuscular Hemoglobin 34 pg (27-31); Mean Corpuscular Volume 98 fL (80-94); Mean Platelet Volume 7.2 fL (7.4-10.4); Platelet Count 507 10^3/uL (150-450); Red Cell Distribution Width 14 % (10-15); White Blood Count 29.5 10^3/uL (3.5-10.8)
[2020-04-16 04:43] LABS: ABS Basophils 0.1 10^3/ul (0-0.2); ABS Lymphocytes 0.7 10^3/ul (1.0-4.8); ABS Neutrophils 27.7 10^3/ul (1.5-7.7); Lymphocyte % 2.3 %
[2020-04-16 04:59] LABS: BUN/Creatinine Ratio 16.8 (8-20); C Reactive Protein 379.92 mg/L (<8.01); Calcium 8.8 mg/dL (8.6-10.3); EGFR African American 102.9 (>60); EGFR Non-African American 85.1 (>60); Magnesium 2.1 mg/dL (1.9-2.7); Potassium 4.6 mmol/L (3.5-5.0)
[2020-04-16] MEDS: Propofol 10 mg/ml 100 ML BTL 100 ML IV SCH ×6 (05:38→22:48)
[2020-04-16] MEDS: Meropenem 1 GM PREMIX 1 GM/50 ML BAG IV SCH ×2 (07:21→20:01)
[2020-04-16] MEDS: Hydrocortisone INJ 100 MG/2ML 2 ML VIAL IV SCH ×2 (07:50→21:21)
[2020-04-16] MEDS: Pantoprazole VIAL 40 MG VIAL IV SCH (07:50)
[2020-04-16] MEDS: Artificial Tear OPHTH.OINT 3.5 GM BOTH EYES PRN (07:52)
[2020-04-16] MEDS: RISPERIDONE 1 MG/ML PO SCH (07:56)
[2020-04-16] MEDS: fentaNYL INFUSION 50 MCG/ML 2,500 MCG/50 ML BAG IV SCH ×2 (10:46→23:41)
[2020-04-16] MEDS ORDERED: Rocuronium 50 mg VIAL 10 mg/ml 5 ml VIAL (50 mg) ONE (11:54)
[2020-04-16 13:44] LABS: Lactate Dehydrogenase, BF 468 U/L
[2020-04-16] MEDS: Azithromycin 500 mg/250 ml NS 500 MG/250 ML BAG IVPB SCH (13:51)
[2020-04-16 14:26] LABS: Glucose, BF < 2 mg/dL
[2020-04-16] MEDS: Enoxaparin 40 MG/0.4 ML SYR SUBCUT SCH (21:21)
[2020-04-17] MEDS: Propofol 10 mg/ml 100 ML BTL 100 ML IV SCH ×9 (01:24→23:01)
[2020-04-17] MEDS: Chlorhexidine MOUTHWASH 0.12% 15 ML UDC SWISH SPIT SCH ×6 (01:25→20:58)
[2020-04-17] MEDS: Norepinephrine 16MCG/ML IVPRE 4,000 MCG/250 ML BAG IV SCH ×3 (02:52→19:36)
[2020-04-17] MEDS ORDERED: Furosemide 20 mg/2 ml IV VIAL IV SLOW PU ONE (03:05)
[2020-04-17 04:53] LABS: Hematocrit 33 % (42-52); Hemoglobin 10.6 g/dL (14.0-18.0); Mean Corpuscular HGB Conc 32 g/dL (31-36); Mean Corpuscular Hemoglobin 32 pg (27-31); Mean Corpuscular Volume 100 fL (80-94); Mean Platelet Volume 7.6 fL (7.4-10.4); Platelet Count 526 10^3/uL (150-450); Red Blood Count 3.28 10^6 /uL (4.18-5.48); Red Cell Distribution Width 14 % (10-15); White Blood Count 26.2 10^3/uL (3.5-10.8)
[2020-04-17 04:54] LABS: ABS Basophils 0.3 10^3/ul (0-0.2); ABS Lymphocytes 0.9 10^3/ul (1.0-4.8); ABS Monocytes 0.9 10^3/ul (0-0.8); ABS Neutrophils 24.2 10^3/ul (1.5-7.7); Lymphocyte % 3.3 %; Nucleated Red Blood Cells % 0.1
[2020-04-17] MEDS: Albuterol 2.5mg/3 ml (0.083%) NEB.SOLN INH SCH ×4 (07:37→19:11)
[2020-04-17] MEDS: Pantoprazole VIAL 40 MG VIAL IV SCH (07:48)
[2020-04-17] MEDS: Hydrocortisone INJ 100 MG/2ML 2 ML VIAL IV SCH ×2 (07:48→20:56)
[2020-04-17] MEDS: RISPERIDONE 1 MG/ML PO SCH (07:48)
[2020-04-17] MEDS: Meropenem 1 GM PREMIX 1 GM/50 ML BAG IV SCH (08:07)
[2020-04-17 09:07] LABS: Calcium 8.8 mg/dL (8.6-10.3); Potassium 4.7 mmol/L (3.5-5.0)
[2020-04-17 09:13] LABS: BUN/Creatinine Ratio 19.8 (8-20); EGFR African American 92.3 (>60); EGFR Non-African American 76.3 (>60)
[2020-04-17] MEDS ORDERED: Furosemide 20 mg/2 ml IV VIAL IV ONE (10:51)
[2020-04-17] MEDS ORDERED: Furosemide 20 mg/2 ml IV VIAL ONE (11:39)
[2020-04-17] MEDS: Artificial Tear OPHTH.OINT 3.5 GM BOTH EYES PRN ×2 (15:08→21:14)
[2020-04-17] MEDS: Meropenem 1 GM PREMIX(*) 1 GM/50 ML BAG IV SCH (16:06)
[2020-04-17] MEDS ORDERED: Chlorhexidine MOUTHWASH 0.12% 15 ML UDC ONE (17:25)
[2020-04-17] MEDS: fentaNYL INFUSION 50 MCG/ML 2,500 MCG/50 ML BAG IV SCH (17:27)
[2020-04-17] MEDS: Enoxaparin 40 MG/0.4 ML SYR SUBCUT SCH (20:56)
[2020-04-18] MEDS: Meropenem 1 GM PREMIX(*) 1 GM/50 ML BAG IV SCH ×3 (00:06→16:41)
[2020-04-18] MEDS: Albuterol 2.5mg/3 ml (0.083%) NEB.SOLN INH SCH ×4 (00:48→19:27)
[2020-04-18] MEDS: Propofol 10 mg/ml 100 ML BTL 100 ML IV SCH ×8 (01:38→22:31)
[2020-04-18] MEDS: Chlorhexidine MOUTHWASH 0.12% 15 ML UDC SWISH SPIT SCH ×6 (01:38→22:00)
[2020-04-18 03:30] LABS: BUN/Creatinine Ratio 24.5 (8-20); Calcium 8.8 mg/dL (8.6-10.3); EGFR African American 111.8 (>60); EGFR Non-African American 92.4 (>60); Magnesium 2.4 mg/dL (1.9-2.7); Potassium 3.5 mmol/L (3.5-5.0)
[2020-04-18 04:30] LABS: ABS Basophils 0.1 10^3/ul (0-0.2); ABS Lymphocytes 0.6 10^3/ul (1.0-4.8); ABS Monocytes 0.3 10^3/ul (0-0.8); ABS Neutrophils 16.3 10^3/ul (1.5-7.7); ABS Nucleated RBC 0.1 10^3/ul; Eosinophil % 0.2 %; Hematocrit 30 % (42-52); Hemoglobin 9.9 g/dL (14.0-18.0); Lymphocyte % 3.6 %; Mean Corpuscular HGB Conc 33 g/dL (31-36); Mean Corpuscular Hemoglobin 33 pg (27-31); Mean Corpuscular Volume 98 fL (80-94); Mean Platelet Volume 7.8 fL (7.4-10.4); Nucleated Red Blood Cells % 0.3; Platelet Count 446 10^3/uL (150-450); Red Blood Count 3.03 10^6 /uL (4.18-5.48); Red Cell Distribution Width 14 % (10-15); White Blood Count 17.4 10^3/uL (3.5-10.8)
[2020-04-18 04:49] LABS: BUN/Creatinine Ratio 23.4 (8-20); C Reactive Protein 222.27 mg/L (<8.01); Calcium 8.7 mg/dL (8.6-10.3); EGFR African American 111.8 (>60); EGFR Non-African American 92.4 (>60); Phosphorus 2.8 mg/dL (2.5-5.0); Potassium 3.4 mmol/L (3.5-5.0)
[2020-04-18] MEDS: KCL 10 MEQ/50 ML IVPREMIX 10 MEQ/50 ML BAG IV SCH ×3 (04:50→07:41)
[2020-04-18] MEDS: Norepinephrine 16MCG/ML IVPRE 4,000 MCG/250 ML BAG IV SCH ×2 (05:54→20:28)
[2020-04-18] MEDS: Pantoprazole VIAL 40 MG VIAL IV SCH (08:59)
[2020-04-18] MEDS: Hydrocortisone INJ 100 MG/2ML 2 ML VIAL IV SCH ×2 (08:59→21:02)
[2020-04-18] MEDS: RISPERIDONE 1 MG/ML PO SCH (09:01)
[2020-04-18] MEDS: Artificial Tear OPHTH.OINT 3.5 GM BOTH EYES PRN ×2 (09:02→18:20)
[2020-04-18] MEDS: fentaNYL INFUSION 50 MCG/ML 2,500 MCG/50 ML BAG IV SCH (11:16)
[2020-04-18] MEDS ORDERED: DORNASE ALFA 1 mg/ml 5 MG in NS 0.9% 50 ML INTRAPLEUR SCH ×2 (11:30→23:30)
[2020-04-18] MEDS ORDERED: Alteplase 10 MG/50 ML NS for CHEST TUBE instillation INTRAPLEUR SCH ×2 (11:30→23:30)
[2020-04-18] MEDS ORDERED: Rocuronium 50 mg VIAL 10 mg/ml 5 ml VIAL (50 mg) ONE (12:02)
[2020-04-18] MEDS ORDERED: Rocuronium 50 mg VIAL 10 mg/ml 5 ml VIAL (50 mg) IV ONE (12:45)
[2020-04-18] MEDS: Enoxaparin 40 MG/0.4 ML SYR SUBCUT SCH (21:02)
[2020-04-19] MEDS: fentaNYL INFUSION 50 MCG/ML 2,500 MCG/50 ML BAG IV SCH ×2 (00:05→15:57)
[2020-04-19] MEDS: Propofol 10 mg/ml 100 ML BTL 100 ML IV SCH ×9 (00:40→22:50)
[2020-04-19] MEDS: Meropenem 1 GM PREMIX(*) 1 GM/50 ML BAG IV SCH ×2 (00:41→07:52)
[2020-04-19] MEDS: Albuterol 2.5mg/3 ml (0.083%) NEB.SOLN INH SCH ×4 (00:50→19:03)
[2020-04-19] MEDS: Chlorhexidine MOUTHWASH 0.12% 15 ML UDC SWISH SPIT SCH ×6 (03:17→21:46)
[2020-04-19 04:53] LABS: ABS Basophils 0.2 10^3/ul (0-0.2); ABS Eosinophils 0.2 10^3/ul (0-0.6); ABS Lymphocytes 0.8 10^3/ul (1.0-4.8); ABS Monocytes 0.5 10^3/ul (0-0.8); ABS Nucleated RBC 0.1 10^3/ul; Eosinophil % 0.9 %; Hematocrit 30 % (42-52); Hemoglobin 9.7 g/dL (14.0-18.0); Lymphocyte % 4.9 %; Mean Corpuscular HGB Conc 32 g/dL (31-36); Mean Corpuscular Hemoglobin 32 pg (27-31); Mean Corpuscular Volume 99 fL (80-94); Mean Platelet Volume 8.4 fL (7.4-10.4); Nucleated Red Blood Cells % 0.3; Platelet Count 422 10^3/uL (150-450); Red Blood Count 3.05 10^6 /uL (4.18-5.48); Red Cell Distribution Width 14 % (10-15); White Blood Count 16.7 10^3/uL (3.5-10.8)
[2020-04-19 05:08] LABS: BUN/Creatinine Ratio 27.5 (8-20); Calcium 8.4 mg/dL (8.6-10.3); EGFR African American 134.7 (>60); EGFR Non-African American 111.3 (>60); Potassium 3.8 mmol/L (3.5-5.0)
[2020-04-19] MEDS: Hydrocortisone INJ 100 MG/2ML 2 ML VIAL IV SCH ×2 (07:51→21:21)
[2020-04-19] MEDS: Pantoprazole VIAL 40 MG VIAL IV SCH (07:51)
[2020-04-19] MEDS: RISPERIDONE 1 MG/ML PO SCH (07:52)
[2020-04-19] MEDS: Norepinephrine 16MCG/ML IVPRE 4,000 MCG/250 ML BAG IV SCH ×2 (09:55→21:47)
[2020-04-19] MEDS ORDERED: DORNASE ALFA 1 mg/ml 5 MG in NS 0.9% 50 ML INTRAPLEUR SCH (14:30)
[2020-04-19] MEDS ORDERED: Alteplase 10 MG/50 ML NS for CHEST TUBE instillation INTRAPLEUR SCH (14:30)
[2020-04-19] MEDS: Cefepime 2 GM in Dextrose 2 GM/50 ML BAG IV SCH (15:42)
[2020-04-19] MEDS: Enoxaparin 40 MG/0.4 ML SYR SUBCUT SCH (21:21)
[2020-04-20] MEDS: Cefepime 2 GM in Dextrose 2 GM/50 ML BAG IV SCH ×4 (00:24→23:35)
[2020-04-20] MEDS: Albuterol 2.5mg/3 ml (0.083%) NEB.SOLN INH SCH ×4 (00:42→19:25)
[2020-04-20] MEDS: Propofol 10 mg/ml 100 ML BTL 100 ML IV SCH ×8 (01:43→23:29)
[2020-04-20] MEDS: Chlorhexidine MOUTHWASH 0.12% 15 ML UDC SWISH SPIT SCH ×6 (03:36→20:56)
[2020-04-20 04:08] LABS: Hematocrit 31 % (42-52); Mean Corpuscular HGB Conc 33 g/dL (31-36); Mean Corpuscular Hemoglobin 32 pg (27-31); Mean Corpuscular Volume 98 fL (80-94); Mean Platelet Volume 8.3 fL (7.4-10.4); Platelet Count 471 10^3/uL (150-450); Red Blood Count 3.11 10^6 /uL (4.18-5.48); Red Cell Distribution Width 15 % (10-15)
[2020-04-20 04:24] LABS: BUN/Creatinine Ratio 28.9 (8-20); Calcium 8.3 mg/dL (8.6-10.3); EGFR African American 117.6 (>60); EGFR Non-African American 97.2 (>60); Magnesium 2.6 mg/dL (1.9-2.7); Phosphorus 3.4 mg/dL (2.5-5.0); Potassium 4.4 mmol/L (3.5-5.0)
[2020-04-20] MEDS: Norepinephrine 16MCG/ML IVPRE 4,000 MCG/250 ML BAG IV SCH ×2 (04:28→13:15)
[2020-04-20 04:39] LABS: ABS Basophils 0.1 10^3/ul (0-0.2); ABS Eosinophils 0.2 10^3/ul (0-0.6); ABS Lymphocytes 0.5 10^3/ul (1.0-4.8); ABS Monocytes 0.4 10^3/ul (0-0.8); ABS Neutrophils 15.9 10^3/ul (1.5-7.7); Lymphocyte % 2.8 %; Nucleated Red Blood Cells % 0.2
[2020-04-20] MEDS: RISPERIDONE 1 MG/ML PO SCH (07:22)
[2020-04-20] MEDS: Pantoprazole VIAL 40 MG VIAL IV SCH (07:33)
[2020-04-20] MEDS: Hydrocortisone INJ 100 MG/2ML 2 ML VIAL IV SCH ×2 (07:34→20:40)
[2020-04-20] MEDS: Artificial Tear OPHTH.OINT 3.5 GM BOTH EYES PRN (07:57)
[2020-04-20] MEDS ORDERED: Docusate LIQ 100 MG/10 ML UDC PO SCH (09:00)
[2020-04-20] MEDS ORDERED: fentaNYL INFUSION 50 MCG/ML 2,500 MCG/50 ML BAG IV SCH (10:29)
[2020-04-20] MEDS: Alteplase 10 MG/50 ML NS for CHEST TUBE instillation INTRAPLEUR SCH ×2 (14:10→23:35)
[2020-04-20] MEDS: DORNASE ALFA 1 mg/ml 5 MG in NS 0.9% 50 ML INTRAPLEUR SCH ×2 (14:10→23:36)
[2020-04-20] MEDS: Enoxaparin 40 MG/0.4 ML SYR SUBCUT SCH (20:40)
[2020-04-21] MEDS: Artificial Tear OPHTH.OINT 3.5 GM BOTH EYES PRN ×2 (00:23→13:16)
[2020-04-21] MEDS: Norepinephrine 16MCG/ML IVPRE 4,000 MCG/250 ML BAG IV SCH (00:46)
[2020-04-21] MEDS: Albuterol 2.5mg/3 ml (0.083%) NEB.SOLN INH SCH ×4 (00:59→20:00)
[2020-04-21] MEDS: Chlorhexidine MOUTHWASH 0.12% 15 ML UDC SWISH SPIT SCH ×6 (01:49→21:14)
[2020-04-21] MEDS: Propofol 10 mg/ml 100 ML BTL 100 ML IV SCH ×5 (02:09→17:27)
[2020-04-21] MEDS: fentaNYL 100 mcg/2 ml 50 MCG/ML VIAL IV SLOW PU PRN (03:01)
[2020-04-21] MEDS ORDERED: Ibuprofen ADULT LIQ 600 MG/30 ML UDC PO ONE (04:34)
[2020-04-21 05:29] LABS: Hematocrit 31 % (42-52); Hemoglobin 10.2 g/dL (14.0-18.0); Mean Corpuscular HGB Conc 32 g/dL (31-36); Mean Corpuscular Hemoglobin 32 pg (27-31); Mean Corpuscular Volume 99 fL (80-94); Mean Platelet Volume 8.8 fL (7.4-10.4); Platelet Count 439 10^3/uL (150-450); Red Blood Count 3.17 10^6 /uL (4.18-5.48); Red Cell Distribution Width 15 % (10-15)
[2020-04-21 05:45] LABS: BUN/Creatinine Ratio 34.6 (8-20); Calcium 8.4 mg/dL (8.6-10.3); EGFR African American 132.8 (>60); EGFR Non-African American 109.7 (>60); Potassium 4.9 mmol/L (3.5-5.0)
[2020-04-21 05:53] LABS: Polychromasia 1+
[2020-04-21 05:54] LABS: ABS Basophils 0.1 10^3/ul (0-0.2); ABS Eosinophils 0.4 10^3/ul (0-0.6); ABS Lymphocytes 0.7 10^3/ul (1.0-4.8); ABS Monocytes 0.4 10^3/ul (0-0.8); ABS Neutrophils 12.4 10^3/ul (1.5-7.7); Eosinophil % 2.7 %
[2020-04-21] MEDS ORDERED: Furosemide 40 mg/4 ml IV VIAL IV SLOW PU ONE ×2 (06:45→15:27)
[2020-04-21] MEDS ORDERED: Norepinephrine 16MCG/ML IVPRE 4,000 MCG/250 ML BAG IV SCH (07:07)
[2020-04-21] MEDS: Cefepime 2 GM in Dextrose 2 GM/50 ML BAG IV SCH ×3 (08:00→23:58)
[2020-04-21] MEDS: Pantoprazole VIAL 40 MG VIAL IV SCH (08:09)
[2020-04-21] MEDS: Hydrocortisone INJ 100 MG/2ML 2 ML VIAL IV SCH ×2 (08:17→19:50)
[2020-04-21] MEDS: RISPERIDONE 1 MG/ML PO SCH (08:17)
[2020-04-21] MEDS: Docusate LIQ 100 MG/10 ML UDC PO SCH ×2 (08:17→20:08)
[2020-04-21] MEDS: Alteplase 10 MG/50 ML NS for CHEST TUBE instillation INTRAPLEUR SCH (09:33)
[2020-04-21] MEDS: DORNASE ALFA 1 mg/ml 5 MG in NS 0.9% 50 ML INTRAPLEUR SCH (09:33)
[2020-04-21 11:14] LABS: Albumin, BF 1.9 g/dL; Fluid Type, Albumin PLEURAL
[2020-04-21 11:15] LABS: Fluid Type, Glucose PLEURAL; Glucose, BF 69 mg/dL
[2020-04-21 11:31] LABS: Folate 12.07 ng/mL (>3.99)
[2020-04-21] MEDS: metroNIDAZOLE IV 250 MG/50ML 50 ML IVPB SCH ×2 (12:08→19:09)
[2020-04-21] MEDS: Dexmedetomidine 1,000 MCG in NS 0.9% 250 ml 240 ML IV SCH (12:12)
[2020-04-21 15:50] LABS: Lactate Dehydrogenase, BF 3092 U/L
[2020-04-21] MEDS: Artificial Tear OPHTH.OINT 3.5 GM BOTH EYES SCH ×3 (17:27→23:58)
[2020-04-21] MEDS: Enoxaparin 40 MG/0.4 ML SYR SUBCUT SCH (19:50)
[2020-04-22] MEDS: Albuterol 2.5mg/3 ml (0.083%) NEB.SOLN INH SCH ×2 (01:09→07:23)
[2020-04-22] MEDS: metroNIDAZOLE IV 250 MG/50ML 50 ML IVPB SCH ×3 (02:03→19:39)
[2020-04-22] MEDS: Chlorhexidine MOUTHWASH 0.12% 15 ML UDC SWISH SPIT SCH ×6 (02:03→22:26)
[2020-04-22 05:01] LABS: Hematocrit 31 % (42-52); Hemoglobin 10.4 g/dL (14.0-18.0); Mean Corpuscular HGB Conc 34 g/dL (31-36); Mean Corpuscular Hemoglobin 33 pg (27-31); Mean Corpuscular Volume 97 fL (80-94); Mean Platelet Volume 8.8 fL (7.4-10.4); Platelet Count 484 10^3/uL (150-450); Red Blood Count 3.18 10^6 /uL (4.18-5.48); Red Cell Distribution Width 14 % (10-15); White Blood Count 12.3 10^3/uL (3.5-10.8)
[2020-04-22] MEDS: Artificial Tear OPHTH.OINT 3.5 GM BOTH EYES SCH ×5 (05:04→19:55)
[2020-04-22 05:16] LABS: Calcium 8.6 mg/dL (8.6-10.3); EGFR African American 125.6 (>60); EGFR Non-African American 103.8 (>60); Magnesium 2.5 mg/dL (1.9-2.7); Potassium 3.7 mmol/L (3.5-5.0)
[2020-04-22] MEDS: Dexmedetomidine 1,000 MCG in NS 0.9% 250 ml 240 ML IV SCH ×2 (05:16→18:17)
[2020-04-22 05:32] LABS: Polychromasia 1+
[2020-04-22 05:33] LABS: ABS Basophils 0.1 10^3/ul (0-0.2); ABS Eosinophils 0.1 10^3/ul (0-0.6); ABS Lymphocytes 0.9 10^3/ul (1.0-4.8); ABS Monocytes 0.7 10^3/ul (0-0.8); ABS Neutrophils 10.6 10^3/ul (1.5-7.7); Eosinophil % 0.5 %; Lymphocyte % 7.1 %; Nucleated Red Blood Cells % 0.1; Platelet Morphology Large
[2020-04-22] MEDS ORDERED: Potassium Chloride LIQUID 20 MEQ/15 ML LIQUID PO ONE (07:13)
[2020-04-22] MEDS: Cefepime 2 GM in Dextrose 2 GM/50 ML BAG IV SCH ×3 (07:33→23:23)
[2020-04-22] MEDS: Docusate LIQ 100 MG/10 ML UDC PO SCH (07:48)
[2020-04-22] MEDS: Hydrocortisone INJ 100 MG/2ML 2 ML VIAL IV SCH ×3 (07:48→19:54)
[2020-04-22] MEDS: RISPERIDONE 1 MG/ML PO SCH (07:49)
[2020-04-22] MEDS: Pantoprazole VIAL 40 MG VIAL IV SCH (07:49)
[2020-04-22] MEDS ORDERED: DORNASE ALFA 1 mg/ml 5 MG in NS 0.9% 50 ML INTRAPLEUR SCH (09:00)
[2020-04-22] MEDS ORDERED: Alteplase 10 MG/50 ML NS for CHEST TUBE instillation INTRAPLEUR SCH (09:00)
[2020-04-22] MEDS: fentaNYL INFUSION 50 MCG/ML 2,500 MCG/50 ML BAG IV SCH (10:11)
[2020-04-22 10:25] LABS: Lithium 0.73 mmol/L (0.6-1.2)
[2020-04-22 11:05] LABS: Urine Appearance Clear; Urine Bilirubin Negative (Negative); Urine Blood 1+ (Negative); Urine Color Yellow; Urine Glucose Negative (Negative); Urine Ketones Negative (Negative); Urine Nitrite Negative (Negative); Urine Protein 1+(30 mg/dL) (Negative); Urine Specific Gravity 1.029 (1.010-1.030); Urine Urobilinogen Negative (Negative)
[2020-04-22 11:12] LABS: Urine Bacteria Absent (Absent); Urine Red Blood Cell 2+(6-10/hpf) (Absent); Urine Squamous Epithelial Cell Present (Absent); Urine White Blood Cell 3+(>20/hpf) (Absent)
[2020-04-22] MEDS: Albuterol/Ipratropium NEB.SOL (2.5/0.5 MG) 3 ML NEB.SOLN INH SCH ×3 (19:46→22:51)
[2020-04-22] MEDS: fentaNYL 100 mcg/2 ml 50 MCG/ML VIAL IV SLOW PU PRN ×2 (19:52→22:01)
[2020-04-22] MEDS: Enoxaparin 40 MG/0.4 ML SYR SUBCUT SCH (19:54)
[2020-04-22] MEDS: metroNIDAZOLE IV 500 MG/100ML 500 MG/100 ML BAG IVPB SCH (20:43)
[2020-04-22] MEDS ORDERED: ORALSYR PO ONE (21:00)
[2020-04-22] MEDS ORDERED: RISPERIDONE PO ONE (21:00)
[2020-04-23] MEDS: Artificial Tear OPHTH.OINT 3.5 GM BOTH EYES SCH ×7 (00:14→23:23)
[2020-04-23] MEDS: Chlorhexidine MOUTHWASH 0.12% 15 ML UDC SWISH SPIT SCH ×6 (02:01→21:21)
[2020-04-23] MEDS: metroNIDAZOLE IV 500 MG/100ML 500 MG/100 ML BAG IVPB SCH ×3 (03:28→20:03)
[2020-04-23] MEDS: Albuterol/Ipratropium NEB.SOL (2.5/0.5 MG) 3 ML NEB.SOLN INH SCH ×6 (03:36→23:08)
[2020-04-23 04:54] LABS: Hematocrit 31 % (42-52); Hemoglobin 10.3 g/dL (14.0-18.0); Mean Corpuscular HGB Conc 34 g/dL (31-36); Mean Corpuscular Hemoglobin 33 pg (27-31); Mean Corpuscular Volume 98 fL (80-94); Mean Platelet Volume 8.6 fL (7.4-10.4); Platelet Count 459 10^3/uL (150-450); Red Blood Count 3.13 10^6 /uL (4.18-5.48); Red Cell Distribution Width 14 % (10-15); White Blood Count 9.1 10^3/uL (3.5-10.8)
[2020-04-23] MEDS: fentaNYL 100 mcg/2 ml 50 MCG/ML VIAL IV SLOW PU PRN ×2 (05:02→15:37)
[2020-04-23 05:06] LABS: BUN/Creatinine Ratio 49.3 (8-20); Calcium 8.7 mg/dL (8.6-10.3); EGFR African American 159.8 (>60); EGFR Non-African American 132.1 (>60); Magnesium 2.4 mg/dL (1.9-2.7); Potassium 3.3 mmol/L (3.5-5.0)
[2020-04-23 05:14] LABS: ABS Basophils 0.1 10^3/ul (0-0.2); ABS Eosinophils 0.1 10^3/ul (0-0.6); ABS Lymphocytes 1.3 10^3/ul (1.0-4.8); ABS Monocytes 0.6 10^3/ul (0-0.8); ABS Neutrophils 7.1 10^3/ul (1.5-7.7); Eosinophil % 0.9 %; Lymphocyte % 14.1 %
[2020-04-23] MEDS: KCL 20 MEQ/100 ML IVPREMIX 20 MEQ/100 ML BAG IV SCH ×2 (05:54→07:54)
[2020-04-23] MEDS: Cefepime 2 GM in Dextrose 2 GM/50 ML BAG IV SCH ×3 (07:49→23:23)
[2020-04-23 07:52] LABS: Phosphorus 2.5 mg/dL (2.5-5.0)
[2020-04-23] MEDS: Pantoprazole VIAL 40 MG VIAL IV SCH (07:55)
[2020-04-23] MEDS: Hydrocortisone INJ 100 MG/2ML 2 ML VIAL IV SCH ×2 (07:55→20:03)
[2020-04-23] MEDS: RISPERIDONE PO SCH (08:06)
[2020-04-23] MEDS: ORALSYR PO SCH (08:06)
[2020-04-23] MEDS ORDERED: Dexamethasone IV 4 MG/ML 5 ML VIAL (20 MG) ONE (13:22)
[2020-04-23] MEDS ORDERED: Dexamethasone IV 4 MG/ML VIAL 1 ml VIAL IV SLOW PU ONE (13:35)
[2020-04-23] MEDS ORDERED: Rocuronium 50 mg VIAL 10 mg/ml 5 ml VIAL (50 mg) ONE (15:03)
[2020-04-23] MEDS ORDERED: Propofol 10 MG/ML 20 ML BTL ONE (15:11)
[2020-04-23] MEDS ORDERED: Etomidate 40 mg/20 ml (2 MG/ML) 20 ml VIAL (40 mg) ONE (15:11)
[2020-04-23] MEDS ORDERED: Dexamethasone IV 4 MG/ML VIAL 1 ml VIAL IV SLOW PU SCH (18:00)
[2020-04-23] MEDS: Dexmedetomidine 1,000 MCG in NS 0.9% 250 ml 240 ML IV SCH (19:31)
[2020-04-23] MEDS: Enoxaparin 40 MG/0.4 ML SYR SUBCUT SCH (20:03)
[2020-04-23] MEDS: Saline FLUSH-CENTRAL 10 ML SYRINGE CENT\\PICC SCH (20:04)
[2020-04-24] MEDS: Chlorhexidine MOUTHWASH 0.12% 15 ML UDC SWISH SPIT SCH ×6 (01:25→21:52)
[2020-04-24] MEDS: Albuterol/Ipratropium NEB.SOL (2.5/0.5 MG) 3 ML NEB.SOLN INH SCH ×6 (03:31→23:17)
[2020-04-24] MEDS: metroNIDAZOLE IV 500 MG/100ML 500 MG/100 ML BAG IVPB SCH ×3 (03:54→19:06)
[2020-04-24] MEDS: fentaNYL 100 mcg/2 ml 50 MCG/ML VIAL IV SLOW PU PRN ×2 (03:54→08:44)
[2020-04-24] MEDS: Artificial Tear OPHTH.OINT 3.5 GM BOTH EYES SCH ×2 (03:55→08:09)
[2020-04-24 04:49] LABS: ABS Basophils 0.1 10^3/ul (0-0.2); ABS Lymphocytes 1.3 10^3/ul (1.0-4.8); ABS Monocytes 0.6 10^3/ul (0-0.8); ABS Neutrophils 10.4 10^3/ul (1.5-7.7); Eosinophil % 0.3 %; Hematocrit 30 % (42-52); Hemoglobin 9.8 g/dL (14.0-18.0); Lymphocyte % 10.5 %; Mean Corpuscular HGB Conc 32 g/dL (31-36); Mean Corpuscular Hemoglobin 32 pg (27-31); Mean Corpuscular Volume 99 fL (80-94); Mean Platelet Volume 8.5 fL (7.4-10.4); Platelet Count 484 10^3/uL (150-450); Red Blood Count 3.05 10^6 /uL (4.18-5.48); Red Cell Distribution Width 14 % (10-15); White Blood Count 12.4 10^3/uL (3.5-10.8)
[2020-04-24 05:07] LABS: BUN/Creatinine Ratio 37.8 (8-20); Calcium 8.6 mg/dL (8.6-10.3); EGFR African American 147.4 (>60); EGFR Non-African American 121.8 (>60); Magnesium 2.2 mg/dL (1.9-2.7); Phosphorus 3.4 mg/dL (2.5-5.0); Potassium 3.8 mmol/L (3.5-5.0)
[2020-04-24] MEDS ORDERED: KCL 20 MEQ/100 ML IVPREMIX 20 MEQ/100 ML BAG IV ONE (05:09)
[2020-04-24] MEDS: fentaNYL INFUSION 50 MCG/ML 2,500 MCG/50 ML BAG IV SCH (05:42)
[2020-04-24] MEDS: Cefepime 2 GM in Dextrose 2 GM/50 ML BAG IV SCH ×3 (07:45→23:05)
[2020-04-24] MEDS: Hydrocortisone INJ 100 MG/2ML 2 ML VIAL IV SCH (07:45)
[2020-04-24] MEDS: Pantoprazole VIAL 40 MG VIAL IV SCH (07:45)
[2020-04-24] MEDS: RISPERIDONE PO SCH (07:46)
[2020-04-24] MEDS: ORALSYR PO SCH (07:46)
[2020-04-24] MEDS: Saline FLUSH-CENTRAL 10 ML SYRINGE CENT\\PICC SCH ×2 (07:47→19:09)
[2020-04-24] MEDS: Dextran 70/Hypromellose Tears Eye Drops 15 ml BTL (for Artificials Tears) BOTH EYES SCH ×6 (13:13→23:04)
[2020-04-24] MEDS: Enoxaparin 40 MG/0.4 ML SYR SUBCUT SCH (20:37)
[2020-04-24] MEDS ORDERED: Chlorhexidine MOUTHWASH 0.12% 15 ML UDC ONE (21:51)
[2020-04-24] MEDS: Dexmedetomidine 1,000 MCG in NS 0.9% 250 ml 240 ML IV SCH (22:10)
[2020-04-25] MEDS: Dextran 70/Hypromellose Tears Eye Drops 15 ml BTL (for Artificials Tears) BOTH EYES SCH ×11 (01:58→21:48)
[2020-04-25] MEDS: fentaNYL INFUSION 50 MCG/ML 2,500 MCG/50 ML BAG IV SCH ×2 (02:00→21:35)
[2020-04-25] MEDS: Chlorhexidine MOUTHWASH 0.12% 15 ML UDC SWISH SPIT SCH ×6 (02:04→21:48)
[2020-04-25] MEDS: metroNIDAZOLE IV 500 MG/100ML 500 MG/100 ML BAG IVPB SCH ×3 (03:15→20:02)
[2020-04-25] MEDS: Albuterol/Ipratropium NEB.SOL (2.5/0.5 MG) 3 ML NEB.SOLN INH SCH ×6 (03:29→23:12)
[2020-04-25 04:40] LABS: ABS Basophils 0.1 10^3/ul (0-0.2); ABS Eosinophils 0.3 10^3/ul (0-0.6); ABS Lymphocytes 1.7 10^3/ul (1.0-4.8); ABS Monocytes 0.7 10^3/ul (0-0.8); ABS Neutrophils 9.2 10^3/ul (1.5-7.7); Eosinophil % 2.2 %; Hematocrit 32 % (42-52); Hemoglobin 10.3 g/dL (14.0-18.0); Lymphocyte % 14.4 %; Mean Corpuscular HGB Conc 33 g/dL (31-36); Mean Corpuscular Hemoglobin 32 pg (27-31); Mean Corpuscular Volume 99 fL (80-94); Mean Platelet Volume 8.3 fL (7.4-10.4); Platelet Count 552 10^3/uL (150-450); Red Blood Count 3.19 10^6 /uL (4.18-5.48); Red Cell Distribution Width 15 % (10-15); White Blood Count 11.9 10^3/uL (3.5-10.8)
[2020-04-25 04:59] LABS: BUN/Creatinine Ratio 33.8 (8-20); Calcium 8.4 mg/dL (8.6-10.3); EGFR African American 134.7 (>60); EGFR Non-African American 111.3 (>60); Phosphorus 3.4 mg/dL (2.5-5.0); Potassium 4.1 mmol/L (3.5-5.0)
[2020-04-25] MEDS: Pantoprazole VIAL 40 MG VIAL IV SCH (07:56)
[2020-04-25] MEDS: RISPERIDONE PO SCH (07:56)
[2020-04-25] MEDS: ORALSYR PO SCH (07:56)
[2020-04-25] MEDS: Cefepime 2 GM in Dextrose 2 GM/50 ML BAG IV SCH ×2 (07:56→15:45)
[2020-04-25] MEDS: Saline FLUSH-CENTRAL 10 ML SYRINGE CENT\\PICC SCH ×2 (08:41→20:05)
[2020-04-25] MEDS ORDERED: Furosemide 20 mg/2 ml IV VIAL IV ONE (09:15)
[2020-04-25] MEDS: Albuterol/Ipratropium NEB.SOL (2.5/0.5 MG) 3 ML NEB.SOLN INH PRN (09:21)
[2020-04-25] MEDS: Dexmedetomidine 1,000 MCG in NS 0.9% 250 ml 240 ML IV SCH (21:00)
[2020-04-25] MEDS ORDERED: Chlorhexidine MOUTHWASH 0.12% 15 ML UDC ONE (21:47)
[2020-04-26] MEDS: Dextran 70/Hypromellose Tears Eye Drops 15 ml BTL (for Artificials Tears) BOTH EYES SCH ×13 (00:35→23:10)
[2020-04-26] MEDS: Cefepime 2 GM in Dextrose 2 GM/50 ML BAG IV SCH ×3 (00:35→15:34)
[2020-04-26] MEDS: Albuterol/Ipratropium NEB.SOL (2.5/0.5 MG) 3 ML NEB.SOLN INH SCH (02:43)
[2020-04-26] MEDS: Chlorhexidine MOUTHWASH 0.12% 15 ML UDC SWISH SPIT SCH ×4 (02:48→14:10)
[2020-04-26] MEDS: metroNIDAZOLE IV 500 MG/100ML 500 MG/100 ML BAG IVPB SCH ×3 (03:46→20:43)
[2020-04-26 04:14] LABS: ABS Basophils 0.1 10^3/ul (0-0.2); ABS Eosinophils 0.2 10^3/ul (0-0.6); ABS Lymphocytes 1.4 10^3/ul (1.0-4.8); ABS Monocytes 0.5 10^3/ul (0-0.8); ABS Neutrophils 7.8 10^3/ul (1.5-7.7); Eosinophil % 1.9 %; Hematocrit 29 % (42-52); Hemoglobin 10.1 g/dL (14.0-18.0); Mean Corpuscular HGB Conc 35 g/dL (31-36); Mean Corpuscular Hemoglobin 34 pg (27-31); Mean Corpuscular Volume 97 fL (80-94); Mean Platelet Volume 7.9 fL (7.4-10.4); Platelet Count 515 10^3/uL (150-450); Red Blood Count 2.97 10^6 /uL (4.18-5.48); Red Cell Distribution Width 15 % (10-15); White Blood Count 10.1 10^3/uL (3.5-10.8)
[2020-04-26 04:30] LABS: BUN/Creatinine Ratio 41.1 (8-20); C Reactive Protein 14.37 mg/L (<8.01); Calcium 8.5 mg/dL (8.6-10.3); EGFR African American 149.7 (>60); EGFR Non-African American 123.7 (>60); Phosphorus 3.6 mg/dL (2.5-5.0); Potassium 3.8 mmol/L (3.5-5.0)
[2020-04-26] MEDS ORDERED: KCL 20 MEQ/100 ML IVPREMIX 20 MEQ/100 ML BAG IV ONE (04:42)
[2020-04-26] MEDS: Pantoprazole VIAL 40 MG VIAL IV SCH (08:55)
[2020-04-26] MEDS: RISPERIDONE PO SCH (08:58)
[2020-04-26] MEDS: ORALSYR PO SCH (08:58)
[2020-04-26] MEDS: Saline FLUSH-CENTRAL 10 ML SYRINGE CENT\\PICC SCH ×2 (08:58→20:46)
[2020-04-26] MEDS ORDERED: Midazolam 10 mg/10 ml VIAL 1 mg/ml 10 ml VIAL (10 mg) ONE (12:53)
[2020-04-26] MEDS ORDERED: Ketamine HCL 50 mg/ml 10 ml VIAL (500 MG) ONE (12:54)
[2020-04-26] MEDS ORDERED: Lidocaine 1% w EPI 1:100,000 MDV 20 ML VIAL ONE (14:02)
[2020-04-26] MEDS ORDERED: fentaNYL INFUSION 50 MCG/ML 2,500 MCG/50 ML BAG IV SCH (15:25)
[2020-04-26] MEDS ORDERED: Enoxaparin 40 MG/0.4 ML SYR SUBCUT SCH (21:00)
[2020-04-26] MEDS: Dexmedetomidine 1,000 MCG in NS 0.9% 250 ml 240 ML IV SCH (21:46)
[2020-04-27] MEDS: Cefepime 2 GM in Dextrose 2 GM/50 ML BAG IV SCH ×3 (00:22→15:50)
[2020-04-27] MEDS: Dextran 70/Hypromellose Tears Eye Drops 15 ml BTL (for Artificials Tears) BOTH EYES SCH ×6 (00:25→21:06)
[2020-04-27] MEDS: metroNIDAZOLE IV 500 MG/100ML 500 MG/100 ML BAG IVPB SCH ×3 (03:00→20:36)
[2020-04-27 06:21] LABS: ABS Basophils 0.1 10^3/ul (0-0.2); ABS Eosinophils 0.3 10^3/ul (0-0.6); ABS Lymphocytes 1.2 10^3/ul (1.0-4.8); ABS Monocytes 0.5 10^3/ul (0-0.8); ABS Neutrophils 8.7 10^3/ul (1.5-7.7); Eosinophil % 2.9 %; Hematocrit 30 % (42-52); Hemoglobin 9.8 g/dL (14.0-18.0); Lymphocyte % 11.2 %; Mean Corpuscular HGB Conc 33 g/dL (31-36); Mean Corpuscular Hemoglobin 32 pg (27-31); Mean Corpuscular Volume 98 fL (80-94); Mean Platelet Volume 7.9 fL (7.4-10.4); Platelet Count 525 10^3/uL (150-450); Red Blood Count 3.07 10^6 /uL (4.18-5.48); Red Cell Distribution Width 15 % (10-15); White Blood Count 10.8 10^3/uL (3.5-10.8)
[2020-04-27 06:36] LABS: BUN/Creatinine Ratio 43.3 (8-20); C Reactive Protein 14.09 mg/L (<8.01); Calcium 8.5 mg/dL (8.6-10.3); EGFR African American 165.3 (>60); EGFR Non-African American 136.6 (>60); Potassium 3.4 mmol/L (3.5-5.0)
[2020-04-27] MEDS: Saline FLUSH-CENTRAL 10 ML SYRINGE CENT\\PICC SCH ×2 (08:27→20:39)
[2020-04-27] MEDS: Pantoprazole VIAL 40 MG VIAL IV SCH (08:31)
[2020-04-27] MEDS: RISPERIDONE PO SCH (08:31)
[2020-04-27] MEDS: ORALSYR PO SCH (08:31)
[2020-04-27] MEDS: KCL 20 MEQ/100 ML IVPREMIX 20 MEQ/100 ML BAG IV SCH ×2 (08:33→10:40)
[2020-04-27] MEDS ORDERED: ORALSYR PO SCH (10:00)
[2020-04-27] MEDS ORDERED: RISPERIDONE PO SCH (10:00)
[2020-04-27] MEDS: Dexmedetomidine 1,000 MCG in NS 0.9% 250 ml 240 ML IV SCH (15:41)
[2020-04-27] MEDS: Enoxaparin 40 MG/0.4 ML SYR SUBCUT SCH (21:06)
[2020-04-28] MEDS: Cefepime 2 GM in Dextrose 2 GM/50 ML BAG IV SCH ×3 (00:38→15:35)
[2020-04-28] MEDS: metroNIDAZOLE IV 500 MG/100ML 500 MG/100 ML BAG IVPB SCH ×2 (04:44→12:37)
[2020-04-28] MEDS: ORALSYR PO SCH (09:09)
[2020-04-28] MEDS: Saline FLUSH-CENTRAL 10 ML SYRINGE CENT\\PICC SCH ×2 (09:09→21:21)
[2020-04-28] MEDS: Pantoprazole VIAL 40 MG VIAL IV SCH (09:09)
[2020-04-28] MEDS: RISPERIDONE PO SCH (09:09)
[2020-04-28] MEDS: Dextran 70/Hypromellose Tears Eye Drops 15 ml BTL (for Artificials Tears) BOTH EYES SCH ×2 (09:09→21:22)
[2020-04-28] MEDS: KCL 20 MEQ/100 ML IVPREMIX 20 MEQ/100 ML BAG IV SCH ×2 (10:59→16:11)
[2020-04-28] MEDS: Enoxaparin 40 MG/0.4 ML SYR SUBCUT SCH (21:24)
[2020-04-28] MEDS: Dexmedetomidine 1,000 MCG in NS 0.9% 250 ml 240 ML IV SCH (23:00)
[2020-04-29] MEDS: ORALSYR PO SCH (08:04)
[2020-04-29] MEDS: Pantoprazole VIAL 40 MG VIAL IV SCH (08:04)
[2020-04-29] MEDS: RISPERIDONE PO SCH (08:04)
[2020-04-29] MEDS: Dextran 70/Hypromellose Tears Eye Drops 15 ml BTL (for Artificials Tears) BOTH EYES SCH ×2 (08:05→19:49)
[2020-04-29] MEDS: Saline FLUSH-CENTRAL 10 ML SYRINGE CENT\\PICC SCH ×2 (08:19→19:48)
[2020-04-29] MEDS: Cefepime 2 GM in Dextrose 2 GM/50 ML BAG IV SCH ×2 (09:28→16:52)
[2020-04-29 09:54] LABS: BUN/Creatinine Ratio 32.3 (8-20); Calcium 8.5 mg/dL (8.6-10.3); EGFR African American 171.2 (>60); EGFR Non-African American 141.5 (>60); Phosphorus 3.3 mg/dL (2.5-5.0); Potassium 3.9 mmol/L (3.5-5.0)
[2020-04-29] MEDS: metroNIDAZOLE IV 500 MG/100ML 500 MG/100 ML BAG IVPB SCH ×2 (10:13→17:34)
[2020-04-29] MEDS: Enoxaparin 40 MG/0.4 ML SYR SUBCUT SCH (19:49)
[2020-04-30] MEDS ORDERED: LORazepam 2 mg VIAL 1 ml IV PUSH ONE (00:40)
[2020-04-30] MEDS ORDERED: Lorazepam PYXIS KEY ONE (00:40)
[2020-04-30] MEDS ORDERED: LORazepam 2 mg VIAL 1 ml ONE (00:40)
[2020-04-30] MEDS ORDERED: Lorazepam PYXIS KEY PRN (00:40)
[2020-04-30] MEDS: Cefepime 2 GM in Dextrose 2 GM/50 ML BAG IV SCH ×3 (00:49→17:07)
[2020-04-30] MEDS: metroNIDAZOLE IV 500 MG/100ML 500 MG/100 ML BAG IVPB SCH ×3 (01:39→17:55)
[2020-04-30 04:27] LABS: ABS Basophils 0.1 10^3/ul (0-0.2); ABS Eosinophils 0.2 10^3/ul (0-0.6); ABS Lymphocytes 1.1 10^3/ul (1.0-4.8); ABS Monocytes 0.5 10^3/ul (0-0.8); Eosinophil % 1.8 %; Hematocrit 29 % (42-52); Hemoglobin 9.7 g/dL (14.0-18.0); Lymphocyte % 8.6 %; Mean Corpuscular HGB Conc 34 g/dL (31-36); Mean Corpuscular Hemoglobin 33 pg (27-31); Mean Corpuscular Volume 98 fL (80-94); Mean Platelet Volume 7.6 fL (7.4-10.4); Platelet Count 493 10^3/uL (150-450); Red Blood Count 2.94 10^6 /uL (4.18-5.48); Red Cell Distribution Width 15 % (10-15); White Blood Count 12.9 10^3/uL (3.5-10.8)
[2020-04-30 04:43] LABS: BUN/Creatinine Ratio 26.7 (8-20); Calcium 8.5 mg/dL (8.6-10.3); EGFR African American 145.1 (>60); EGFR Non-African American 119.9 (>60); Magnesium 1.9 mg/dL (1.9-2.7); Phosphorus 3.9 mg/dL (2.5-5.0); Potassium 3.8 mmol/L (3.5-5.0)
[2020-04-30] MEDS: Pantoprazole VIAL 40 MG VIAL IV SCH (08:25)
[2020-04-30] MEDS: ORALSYR PO SCH (08:26)
[2020-04-30] MEDS: RISPERIDONE PO SCH (08:26)
[2020-04-30] MEDS: Saline FLUSH-CENTRAL 10 ML SYRINGE CENT\\PICC SCH ×2 (08:39→20:18)
[2020-04-30] MEDS: Dextran 70/Hypromellose Tears Eye Drops 15 ml BTL (for Artificials Tears) BOTH EYES SCH ×2 (08:39→20:18)
[2020-04-30 12:28] LABS: Urine Appearance Cloudy; Urine Bilirubin Negative (Negative); Urine Blood 1+ (Negative); Urine Color Yellow; Urine Glucose Negative (Negative); Urine Ketones Negative (Negative); Urine Nitrite Negative (Negative); Urine Protein Negative (Negative); Urine Specific Gravity 1.014 (1.010-1.030); Urine Urobilinogen Negative (Negative)
[2020-04-30] MEDS: fentaNYL 100 mcg/2 ml 50 MCG/ML VIAL IV SLOW PU PRN ×2 (14:43→23:13)
[2020-04-30] MEDS: Enoxaparin 40 MG/0.4 ML SYR SUBCUT SCH (20:18)
[2020-04-30] MEDS: Dexmedetomidine 1,000 MCG in NS 0.9% 250 ml 240 ML IV SCH (20:28)
[2020-05-01] MEDS: Cefepime 2 GM in Dextrose 2 GM/50 ML BAG IV SCH ×3 (01:17→17:28)
[2020-05-01] MEDS: metroNIDAZOLE IV 500 MG/100ML 500 MG/100 ML BAG IVPB SCH ×3 (01:51→17:29)
[2020-05-01] MEDS: fentaNYL 100 mcg/2 ml 50 MCG/ML VIAL IV SLOW PU PRN (03:20)
[2020-05-01 05:03] LABS: ABS Basophils 0.1 10^3/ul (0-0.2); ABS Eosinophils 0.3 10^3/ul (0-0.6); ABS Lymphocytes 1.2 10^3/ul (1.0-4.8); ABS Monocytes 0.5 10^3/ul (0-0.8); ABS Neutrophils 10.9 10^3/ul (1.5-7.7); Eosinophil % 2.1 %; Hematocrit 30 % (42-52); Hemoglobin 9.7 g/dL (14.0-18.0); Lymphocyte % 9.3 %; Mean Corpuscular HGB Conc 33 g/dL (31-36); Mean Corpuscular Hemoglobin 32 pg (27-31); Mean Corpuscular Volume 99 fL (80-94); Mean Platelet Volume 7.8 fL (7.4-10.4); Platelet Count 452 10^3/uL (150-450); Red Blood Count 2.98 10^6 /uL (4.18-5.48); Red Cell Distribution Width 15 % (10-15); White Blood Count 12.9 10^3/uL (3.5-10.8)
[2020-05-01 05:06] LABS: BUN/Creatinine Ratio 29.4 (8-20); Calcium 8.7 mg/dL (8.6-10.3); EGFR African American 162.5 (>60); EGFR Non-African American 134.3 (>60); Magnesium 1.9 mg/dL (1.9-2.7); Phosphorus 3.5 mg/dL (2.5-5.0); Potassium 3.6 mmol/L (3.5-5.0)
[2020-05-01] MEDS: Saline FLUSH-CENTRAL 10 ML SYRINGE CENT\\PICC SCH ×2 (08:13→20:41)
[2020-05-01] MEDS: Pantoprazole VIAL 40 MG VIAL IV SCH (08:14)
[2020-05-01] MEDS: RISPERIDONE PO SCH (08:14)
[2020-05-01] MEDS: ORALSYR PO SCH (08:14)
[2020-05-01] MEDS ORDERED: KCL 20 MEQ/100 ML IVPREMIX 20 MEQ/100 ML BAG IV ONE (08:30)
[2020-05-01] MEDS: Dextran 70/Hypromellose Tears Eye Drops 15 ml BTL (for Artificials Tears) BOTH EYES SCH ×2 (08:32→20:42)
[2020-05-01] MEDS: Enoxaparin 40 MG/0.4 ML SYR SUBCUT SCH (20:42)
[2020-05-02] MEDS: metroNIDAZOLE IV 500 MG/100ML 500 MG/100 ML BAG IVPB SCH ×3 (01:17→17:13)
[2020-05-02] MEDS: Cefepime 2 GM in Dextrose 2 GM/50 ML BAG IV SCH ×3 (01:17→17:13)
[2020-05-02] MEDS: fentaNYL 100 mcg/2 ml 50 MCG/ML VIAL IV SLOW PU PRN ×2 (02:08→22:49)
[2020-05-02 05:16] LABS: ABS Basophils 0.1 10^3/ul (0-0.2); ABS Eosinophils 0.4 10^3/ul (0-0.6); ABS Lymphocytes 1.2 10^3/ul (1.0-4.8); ABS Monocytes 0.4 10^3/ul (0-0.8); ABS Neutrophils 7.7 10^3/ul (1.5-7.7); Eosinophil % 4.2 %; Hematocrit 30 % (42-52); Hemoglobin 9.9 g/dL (14.0-18.0); Lymphocyte % 12.6 %; Mean Corpuscular HGB Conc 33 g/dL (31-36); Mean Corpuscular Hemoglobin 33 pg (27-31); Mean Corpuscular Volume 98 fL (80-94); Mean Platelet Volume 7.5 fL (7.4-10.4); Platelet Count 453 10^3/uL (150-450); Red Blood Count 3.05 10^6 /uL (4.18-5.48); Red Cell Distribution Width 15 % (10-15); White Blood Count 9.9 10^3/uL (3.5-10.8)
[2020-05-02 05:36] LABS: BUN/Creatinine Ratio 32.8 (8-20); Calcium 8.9 mg/dL (8.6-10.3); EGFR African American 184.2 (>60); EGFR Non-African American 152.2 (>60); Magnesium 1.9 mg/dL (1.9-2.7); Phosphorus 4.2 mg/dL (2.5-5.0); Potassium 3.9 mmol/L (3.5-5.0)
[2020-05-02] MEDS: Saline FLUSH-CENTRAL 10 ML SYRINGE CENT\\PICC SCH ×2 (07:56→21:06)
[2020-05-02] MEDS: Dextran 70/Hypromellose Tears Eye Drops 15 ml BTL (for Artificials Tears) BOTH EYES SCH ×2 (07:57→21:06)
[2020-05-02] MEDS: Pantoprazole VIAL 40 MG VIAL IV SCH (07:57)
[2020-05-02] MEDS: RISPERIDONE PO SCH (07:58)
[2020-05-02] MEDS: ORALSYR PO SCH (07:58)
[2020-05-02 09:16] LABS: C Reactive Protein 12.78 mg/L (<8.01)
[2020-05-02] MEDS ORDERED: Furosemide 20 mg/2 ml IV VIAL IV SLOW PU ONE (18:29)
[2020-05-02] MEDS: Enoxaparin 40 MG/0.4 ML SYR SUBCUT SCH (21:06)
[2020-05-03] MEDS: Cefepime 2 GM in Dextrose 2 GM/50 ML BAG IV SCH (01:25)
[2020-05-03] MEDS: metroNIDAZOLE IV 500 MG/100ML 500 MG/100 ML BAG IVPB SCH ×3 (01:57→17:18)
[2020-05-03] MEDS: fentaNYL 100 mcg/2 ml 50 MCG/ML VIAL IV SLOW PU PRN ×2 (02:57→11:55)
[2020-05-03 05:21] LABS: ABS Basophils 0.1 10^3/ul (0-0.2); ABS Eosinophils 0.4 10^3/ul (0-0.6); ABS Monocytes 0.5 10^3/ul (0-0.8); ABS Neutrophils 9.3 10^3/ul (1.5-7.7); Eosinophil % 3.2 %; Hematocrit 33 % (42-52); Hemoglobin 10.8 g/dL (14.0-18.0); Lymphocyte % 9.1 %; Mean Corpuscular HGB Conc 33 g/dL (31-36); Mean Corpuscular Hemoglobin 32 pg (27-31); Mean Corpuscular Volume 98 fL (80-94); Mean Platelet Volume 7.7 fL (7.4-10.4); Platelet Count 471 10^3/uL (150-450); Red Blood Count 3.36 10^6 /uL (4.18-5.48); Red Cell Distribution Width 16 % (10-15); White Blood Count 11.2 10^3/uL (3.5-10.8)
[2020-05-03 05:33] LABS: Activated Partial Thrombo Time 27.7 seconds (26.0-38.0); INR 1.28 (0.82-1.09)
[2020-05-03 05:40] LABS: BUN/Creatinine Ratio 25.9 (8-20); EGFR African American 132.8 (>60); EGFR Non-African American 109.7 (>60); Magnesium 1.9 mg/dL (1.9-2.7); Phosphorus 4.3 mg/dL (2.5-5.0); Potassium 3.6 mmol/L (3.5-5.0)
[2020-05-03] MEDS: RISPERIDONE PO SCH (08:14)
[2020-05-03] MEDS: Pantoprazole VIAL 40 MG VIAL IV SCH (08:14)
[2020-05-03] MEDS: ORALSYR PO SCH (08:14)
[2020-05-03] MEDS: Dextran 70/Hypromellose Tears Eye Drops 15 ml BTL (for Artificials Tears) BOTH EYES SCH ×2 (08:16→21:57)
[2020-05-03] MEDS: Saline FLUSH-CENTRAL 10 ML SYRINGE CENT\\PICC SCH ×2 (08:17→21:56)
[2020-05-03] MEDS ORDERED: Acetylcysteine INH SOL (RT) 200 MG/ML 4 ML VIAL INH ONE (12:03)
[2020-05-03] MEDS ORDERED: fentaNYL 100 mcg/2 ml 50 MCG/ML VIAL IV SLOW PU ONE ×2 (15:14→15:33)
[2020-05-03] MEDS ORDERED: Acetylcysteine INHALATION SOL 200 MG/ML NEB.SOLN 10 ML INH ONE (18:32)
[2020-05-03] MEDS: Albuterol/Ipratropium NEB.SOL (2.5/0.5 MG) 3 ML NEB.SOLN INH PRN (20:31)
[2020-05-03] MEDS: Enoxaparin 40 MG/0.4 ML SYR SUBCUT SCH (21:57)
[2020-05-04] MEDS: metroNIDAZOLE IV 500 MG/100ML 500 MG/100 ML BAG IVPB SCH ×3 (01:06→18:34)
[2020-05-04 04:04] LABS: ABS Basophils 0.1 10^3/ul (0-0.2); ABS Eosinophils 0.3 10^3/ul (0-0.6); ABS Lymphocytes 1.2 10^3/ul (1.0-4.8); ABS Monocytes 0.4 10^3/ul (0-0.8); ABS Neutrophils 7.1 10^3/ul (1.5-7.7); Eosinophil % 3.5 %; Hematocrit 33 % (42-52); Hemoglobin 10.5 g/dL (14.0-18.0); Lymphocyte % 13.7 %; Mean Corpuscular HGB Conc 32 g/dL (31-36); Mean Corpuscular Hemoglobin 32 pg (27-31); Mean Corpuscular Volume 99 fL (80-94); Mean Platelet Volume 7.5 fL (7.4-10.4); Nucleated Red Blood Cells % 0.1; Platelet Count 448 10^3/uL (150-450); Red Blood Count 3.29 10^6 /uL (4.18-5.48); Red Cell Distribution Width 16 % (10-15); White Blood Count 9.1 10^3/uL (3.5-10.8)
[2020-05-04 04:20] LABS: BUN/Creatinine Ratio 29.6 (8-20); Calcium 9.1 mg/dL (8.6-10.3); EGFR African American 154.6 (>60); EGFR Non-African American 127.8 (>60); Phosphorus 4.2 mg/dL (2.5-5.0); Potassium 3.8 mmol/L (3.5-5.0)
[2020-05-04] MEDS: Saline FLUSH-CENTRAL 10 ML SYRINGE CENT\\PICC SCH ×2 (07:34→20:41)
[2020-05-04] MEDS ORDERED: Furosemide 20 mg/2 ml IV VIAL IV ONE (09:40)
[2020-05-04] MEDS: Pantoprazole VIAL 40 MG VIAL IV SCH (09:58)
[2020-05-04] MEDS: ORALSYR PO SCH (09:58)
[2020-05-04] MEDS: RISPERIDONE PO SCH (09:58)
[2020-05-04] MEDS: Dextran 70/Hypromellose Tears Eye Drops 15 ml BTL (for Artificials Tears) BOTH EYES SCH ×2 (10:00→20:42)
[2020-05-04] MEDS: KCL 10 MEQ/50 ML IVPREMIX 10 MEQ/50 ML BAG IV SCH ×2 (10:43→12:10)
[2020-05-04] MEDS: Sodium Chloride(INHALANT) 7% 4 ML NEB.SOLN INH SCH ×2 (15:08→19:16)
[2020-05-04] MEDS: Enoxaparin 40 MG/0.4 ML SYR SUBCUT SCH (20:42)
[2020-05-05] MEDS: Sodium Chloride(INHALANT) 7% 4 ML NEB.SOLN INH SCH ×3 (01:03→19:39)
[2020-05-05] MEDS: metroNIDAZOLE IV 500 MG/100ML 500 MG/100 ML BAG IVPB SCH (01:38)
[2020-05-05] MEDS ORDERED: KCL 20 MEQ/100 ML IVPREMIX 20 MEQ/100 ML BAG IV ONE (07:30)
[2020-05-05] MEDS: Pantoprazole VIAL 40 MG VIAL IV SCH (09:12)
[2020-05-05] MEDS: ORALSYR PO SCH (09:12)
[2020-05-05] MEDS: RISPERIDONE PO SCH (09:12)
[2020-05-05] MEDS: Saline FLUSH-CENTRAL 10 ML SYRINGE CENT\\PICC SCH ×2 (09:14→20:41)
[2020-05-05] MEDS: Dextran 70/Hypromellose Tears Eye Drops 15 ml BTL (for Artificials Tears) BOTH EYES SCH ×2 (09:14→20:30)
[2020-05-05] MEDS ORDERED: fentaNYL 100 mcg/2 ml 50 MCG/ML VIAL IV SLOW PU PRN (12:32)
[2020-05-05] MEDS ORDERED: Furosemide 40 mg/4 ml IV VIAL IV ONE (12:34)
[2020-05-05] MEDS ORDERED: Albuterol/Ipratropium NEB.SOL (2.5/0.5 MG) 3 ML NEB.SOLN INH SCH ×2 (13:00)
[2020-05-05] MEDS ORDERED: Sodium Chloride(INHALANT) 7% 4 ML NEB.SOLN INH SCH (13:00)
[2020-05-05 15:32] LABS: ABS Basophils 0.1 10^3/ul (0-0.2); ABS Eosinophils 0.1 10^3/ul (0-0.6); ABS Lymphocytes 0.7 10^3/ul (1.0-4.8); ABS Monocytes 0.3 10^3/ul (0-0.8); ABS Neutrophils 12.2 10^3/ul (1.5-7.7); Eosinophil % 0.6 %; Hematocrit 39 % (42-52); Hemoglobin 12.7 g/dL (14.0-18.0); Lymphocyte % 5.6 %; Mean Corpuscular HGB Conc 33 g/dL (31-36); Mean Corpuscular Hemoglobin 32 pg (27-31); Mean Corpuscular Volume 98 fL (80-94); Mean Platelet Volume 7.5 fL (7.4-10.4); Platelet Count 488 10^3/uL (150-450); Red Blood Count 3.98 10^6 /uL (4.18-5.48); Red Cell Distribution Width 16 % (10-15); White Blood Count 13.4 10^3/uL (3.5-10.8)
[2020-05-05 16:08] LABS: Albumin 3.6 g/dL (3.2-5.2); Potassium 4.7 mmol/L (3.5-5.0); Total Bilirubin 0.4 mg/dL (0.2-1.0)
[2020-05-05 16:14] LABS: Albumin/Globulin Ratio 1.1 (1-3); BUN/Creatinine Ratio 28.2 (8-20); EGFR African American 154.6 (>60); EGFR Non-African American 127.8 (>60); Globulin 3.4 g/dL (2-4)
[2020-05-05] MEDS: Albuterol/Ipratropium NEB.SOL (2.5/0.5 MG) 3 ML NEB.SOLN INH SCH (19:39)
[2020-05-05] MEDS: Enoxaparin 40 MG/0.4 ML SYR SUBCUT SCH (20:30)
[2020-05-06] MEDS: Albuterol/Ipratropium NEB.SOL (2.5/0.5 MG) 3 ML NEB.SOLN INH SCH ×4 (03:15→21:55)
[2020-05-06 05:19] LABS: ABS Basophils 0.1 10^3/ul (0-0.2); ABS Eosinophils 0.3 10^3/ul (0-0.6); ABS Lymphocytes 1.3 10^3/ul (1.0-4.8); ABS Monocytes 0.5 10^3/ul (0-0.8); ABS Neutrophils 8.1 10^3/ul (1.5-7.7); Hematocrit 37 % (42-52); Hemoglobin 12.4 g/dL (14.0-18.0); Lymphocyte % 12.6 %; Mean Corpuscular HGB Conc 33 g/dL (31-36); Mean Corpuscular Hemoglobin 33 pg (27-31); Mean Corpuscular Volume 99 fL (80-94); Mean Platelet Volume 7.1 fL (7.4-10.4); Platelet Count 488 10^3/uL (150-450); Red Blood Count 3.77 10^6 /uL (4.18-5.48); Red Cell Distribution Width 16 % (10-15); White Blood Count 10.4 10^3/uL (3.5-10.8)
[2020-05-06 05:34] LABS: Albumin 3.4 g/dL (3.2-5.2); BUN/Creatinine Ratio 28.8 (8-20); Calcium 9.9 mg/dL (8.6-10.3); EGFR African American 149.7 (>60); EGFR Non-African American 123.7 (>60); Globulin 3.5 g/dL (2-4); Potassium 3.9 mmol/L (3.5-5.0); Total Bilirubin 0.3 mg/dL (0.2-1.0); Total Protein 6.9 g/dL (6.4-8.9)
[2020-05-06] MEDS: Sodium Chloride(INHALANT) 7% 4 ML NEB.SOLN INH SCH (07:36)
[2020-05-06] MEDS: ORALSYR PO SCH (08:08)
[2020-05-06] MEDS: RISPERIDONE PO SCH (08:08)
[2020-05-06] MEDS: Pantoprazole VIAL 40 MG VIAL IV SCH (08:09)
[2020-05-06] MEDS: Saline FLUSH-CENTRAL 10 ML SYRINGE CENT\\PICC SCH ×2 (08:10→20:53)
[2020-05-06] MEDS: Dextran 70/Hypromellose Tears Eye Drops 15 ml BTL (for Artificials Tears) BOTH EYES SCH ×2 (08:10→20:54)
[2020-05-06] MEDS: Acetylcysteine INHALATION SOL 200 MG/ML NEB.SOLN 10 ML INH SCH ×3 (10:01→21:55)
[2020-05-06] MEDS: Enoxaparin 40 MG/0.4 ML SYR SUBCUT SCH (20:55)
[2020-05-07] MEDS: Acetylcysteine INHALATION SOL 200 MG/ML NEB.SOLN 10 ML INH SCH ×4 (03:23→22:08)
[2020-05-07] MEDS: Albuterol/Ipratropium NEB.SOL (2.5/0.5 MG) 3 ML NEB.SOLN INH SCH ×4 (03:23→22:09)
[2020-05-07] MEDS: RISPERIDONE PO SCH (08:26)
[2020-05-07] MEDS: Pantoprazole VIAL 40 MG VIAL IV SCH (08:26)
[2020-05-07] MEDS: ORALSYR PO SCH (08:26)
[2020-05-07] MEDS: Dextran 70/Hypromellose Tears Eye Drops 15 ml BTL (for Artificials Tears) BOTH EYES SCH ×2 (08:27→20:50)
[2020-05-07] MEDS: Saline FLUSH-CENTRAL 10 ML SYRINGE CENT\\PICC SCH ×2 (08:59→20:50)
[2020-05-07] MEDS ORDERED: Alteplase (CATHFLO) 2 MG VIAL IV ONE (09:09)
[2020-05-07] MEDS: Enoxaparin 40 MG/0.4 ML SYR SUBCUT SCH (20:50)
[2020-05-08] MEDS: Acetylcysteine INHALATION SOL 200 MG/ML NEB.SOLN 10 ML INH SCH (03:39)
[2020-05-08] MEDS: Albuterol/Ipratropium NEB.SOL (2.5/0.5 MG) 3 ML NEB.SOLN INH SCH (03:39)
[2020-05-08] MEDS: ORALSYR PO SCH (08:14)
[2020-05-08] MEDS: RISPERIDONE PO SCH (08:14)
[2020-05-08] MEDS: Pantoprazole VIAL 40 MG VIAL IV SCH (08:15)
[2020-05-08] MEDS: Saline FLUSH-CENTRAL 10 ML SYRINGE CENT\\PICC SCH ×2 (08:32→21:12)
[2020-05-08] MEDS: Dextran 70/Hypromellose Tears Eye Drops 15 ml BTL (for Artificials Tears) BOTH EYES SCH ×2 (08:33→21:12)
[2020-05-08] MEDS ORDERED: Albuterol/Ipratropium NEB.SOL (2.5/0.5 MG) 3 ML NEB.SOLN INH PRN (12:00)
[2020-05-08] MEDS: Enoxaparin 40 MG/0.4 ML SYR SUBCUT SCH (22:02)
[2020-05-09] MEDS: Loperamide LIQ 2 MG/15 ML UDC PO PRN (03:14)
[2020-05-09] MEDS: Pantoprazole VIAL 40 MG VIAL IV SCH (08:33)
[2020-05-09] MEDS: Saline FLUSH-CENTRAL 10 ML SYRINGE CENT\\PICC SCH ×2 (08:35→20:19)
[2020-05-09] MEDS: ORALSYR PO SCH (08:41)
[2020-05-09] MEDS: RISPERIDONE PO SCH (08:41)
[2020-05-09] MEDS: Dextran 70/Hypromellose Tears Eye Drops 15 ml BTL (for Artificials Tears) BOTH EYES SCH ×2 (08:53→20:18)
[2020-05-09] MEDS: Enoxaparin 40 MG/0.4 ML SYR SUBCUT SCH (20:13)
[2020-05-10] MEDS: RISPERIDONE PO SCH (09:17)
[2020-05-10] MEDS: Saline FLUSH-CENTRAL 10 ML SYRINGE CENT\\PICC SCH ×2 (09:17→22:18)
[2020-05-10] MEDS: Pantoprazole VIAL 40 MG VIAL IV SCH (09:17)
[2020-05-10] MEDS: ORALSYR PO SCH (09:17)
[2020-05-10] MEDS: Dextran 70/Hypromellose Tears Eye Drops 15 ml BTL (for Artificials Tears) BOTH EYES SCH ×2 (09:35→22:19)
[2020-05-10] MEDS: Enoxaparin 40 MG/0.4 ML SYR SUBCUT SCH (22:10)
[2020-05-11] MEDS: Saline FLUSH-CENTRAL 10 ML SYRINGE CENT\\PICC SCH ×2 (08:18→20:20)
[2020-05-11] MEDS: ORALSYR PO SCH (08:58)
[2020-05-11] MEDS: RISPERIDONE PO SCH (08:58)
[2020-05-11] MEDS: Pantoprazole VIAL 40 MG VIAL IV SCH (08:58)
[2020-05-11] MEDS: Dextran 70/Hypromellose Tears Eye Drops 15 ml BTL (for Artificials Tears) BOTH EYES SCH ×2 (08:59→20:21)
[2020-05-11] MEDS: Enoxaparin 40 MG/0.4 ML SYR SUBCUT SCH (20:21)
[2020-05-12] MEDS: Saline FLUSH-CENTRAL 10 ML SYRINGE CENT\\PICC SCH ×2 (07:59→21:21)
[2020-05-12] MEDS: Docusate LIQ 100 MG/10 ML UDC PO SCH ×2 (09:56→21:21)
[2020-05-12] MEDS: Pantoprazole VIAL 40 MG VIAL IV SCH (09:56)
[2020-05-12] MEDS: ORALSYR PO SCH (09:57)
[2020-05-12] MEDS: Dextran 70/Hypromellose Tears Eye Drops 15 ml BTL (for Artificials Tears) BOTH EYES SCH ×2 (09:57→21:40)
[2020-05-12] MEDS: RISPERIDONE PO SCH (09:57)
[2020-05-12] MEDS: Magnesium Hydroxide LIQ 30 ML UDC PO PRN (21:21)
[2020-05-12] MEDS: Enoxaparin 40 MG/0.4 ML SYR SUBCUT SCH (21:22)
[2020-05-13] MEDS: Polyethylene Glycol 3350 17 GM PACKET PO SCH (08:54)
[2020-05-13] MEDS: Docusate LIQ 100 MG/10 ML UDC PO SCH ×3 (08:55→21:28)
[2020-05-13] MEDS: ORALSYR PO SCH (08:56)
[2020-05-13] MEDS: Dextran 70/Hypromellose Tears Eye Drops 15 ml BTL (for Artificials Tears) BOTH EYES SCH ×2 (08:56→21:17)
[2020-05-13] MEDS: RISPERIDONE PO SCH (08:56)
[2020-05-13] MEDS: Pantoprazole VIAL 40 MG VIAL IV SCH (08:56)
[2020-05-13] MEDS: Saline FLUSH-CENTRAL 10 ML SYRINGE CENT\\PICC SCH ×2 (09:17→21:28)
[2020-05-13] MEDS: Enoxaparin 40 MG/0.4 ML SYR SUBCUT SCH (21:17)
[2020-05-14 05:08] LABS: ABS Basophils 0.1 10^3/ul (0-0.2); ABS Eosinophils 0.4 10^3/ul (0-0.6); ABS Lymphocytes 1.4 10^3/ul (1.0-4.8); ABS Monocytes 0.4 10^3/ul (0-0.8); ABS Neutrophils 6.3 10^3/ul (1.5-7.7); Eosinophil % 5.1 %; Hematocrit 34 % (42-52); Hemoglobin 11.3 g/dL (14.0-18.0); Lymphocyte % 16.7 %; Mean Corpuscular HGB Conc 33 g/dL (31-36); Mean Corpuscular Hemoglobin 33 pg (27-31); Mean Corpuscular Volume 99 fL (80-94); Platelet Count 474 10^3/uL (150-450); Red Blood Count 3.43 10^6 /uL (4.18-5.48); Red Cell Distribution Width 16 % (10-15); White Blood Count 8.6 10^3/uL (3.5-10.8)
[2020-05-14 05:23] LABS: BUN/Creatinine Ratio 14.9 (8-20); Calcium 9.7 mg/dL (8.6-10.3); EGFR African American 147.4 (>60); EGFR Non-African American 121.8 (>60); Potassium 3.8 mmol/L (3.5-5.0)
[2020-05-14] MEDS ORDERED: Ondansetron 4 mg VIAL 2 MG/ML 2 ml VIAL IV PRN (07:30)
[2020-05-14] MEDS ORDERED: Furosemide 20 mg/2 ml IV VIAL IV ONE ×2 (08:00→17:54)
[2020-05-14] MEDS: Docusate LIQ 100 MG/10 ML UDC PO SCH ×2 (08:53→22:02)
[2020-05-14] MEDS: Pantoprazole VIAL 40 MG VIAL IV SCH (08:53)
[2020-05-14] MEDS: Polyethylene Glycol 3350 17 GM PACKET PO SCH (08:53)
[2020-05-14] MEDS: Dextran 70/Hypromellose Tears Eye Drops 15 ml BTL (for Artificials Tears) BOTH EYES SCH ×3 (08:55→22:22)
[2020-05-14] MEDS: Saline FLUSH-CENTRAL 10 ML SYRINGE CENT\\PICC SCH ×2 (08:57→22:02)
[2020-05-14] MEDS: RISPERIDONE PO SCH (08:59)
[2020-05-14] MEDS: ORALSYR PO SCH (08:59)
[2020-05-14] MEDS ORDERED: Sodium Chloride(INHALANT)0.9% 5 ML NEB.SOLN INH SCH (12:00)
[2020-05-14] MEDS: Magnesium Hydroxide LIQ 30 ML UDC PO PRN ×2 (13:54→22:02)
[2020-05-14] MEDS: Sodium Chloride(INHALANT)0.9% 5 ML NEB.SOLN INH SCH (19:49)
[2020-05-14] MEDS: Enoxaparin 40 MG/0.4 ML SYR SUBCUT SCH (22:03)
[2020-05-15] MEDS: Sodium Chloride(INHALANT)0.9% 5 ML NEB.SOLN INH SCH ×2 (01:07→07:16)
[2020-05-15] MEDS: RISPERIDONE PO SCH (08:02)
[2020-05-15] MEDS: Polyethylene Glycol 3350 17 GM PACKET PO SCH (08:02)
[2020-05-15] MEDS: Docusate LIQ 100 MG/10 ML UDC PO SCH (08:02)
[2020-05-15] MEDS: Pantoprazole VIAL 40 MG VIAL IV SCH (08:02)
[2020-05-15] MEDS: ORALSYR PO SCH (08:02)
[2020-05-15] MEDS: Dextran 70/Hypromellose Tears Eye Drops 15 ml BTL (for Artificials Tears) BOTH EYES SCH ×2 (08:03→21:12)
[2020-05-15] MEDS: Saline FLUSH-CENTRAL 10 ML SYRINGE CENT\\PICC SCH ×2 (08:04→23:25)
[2020-05-15] MEDS: Furosemide 20 mg/2 ml IV VIAL IV SCH (08:04)
[2020-05-15] MEDS ORDERED: Sodium Chloride(INHALANT)0.9% 5 ML NEB.SOLN INH PRN (08:20)
[2020-05-15] MEDS ORDERED: Albuterol/Ipratropium NEB.SOL (2.5/0.5 MG) 3 ML NEB.SOLN INH PRN (15:51)
[2020-05-15] MEDS: Enoxaparin 40 MG/0.4 ML SYR SUBCUT SCH (20:58)
[2020-05-16 07:02] LABS: ABS Basophils 0.1 10^3/ul (0-0.2); ABS Eosinophils 0.5 10^3/ul (0-0.6); ABS Lymphocytes 1.5 10^3/ul (1.0-4.8); ABS Monocytes 0.5 10^3/ul (0-0.8); ABS Neutrophils 8.8 10^3/ul (1.5-7.7); Eosinophil % 4.1 %; Hematocrit 36 % (42-52); Hemoglobin 11.8 g/dL (14.0-18.0); Lymphocyte % 13.4 %; Mean Corpuscular HGB Conc 33 g/dL (31-36); Mean Corpuscular Hemoglobin 32 pg (27-31); Mean Corpuscular Volume 99 fL (80-94); Mean Platelet Volume 6.8 fL (7.4-10.4); Platelet Count 493 10^3/uL (150-450); Red Blood Count 3.65 10^6 /uL (4.18-5.48); Red Cell Distribution Width 16 % (10-15); White Blood Count 11.4 10^3/uL (3.5-10.8)
[2020-05-16 07:10] LABS: BUN/Creatinine Ratio 15.9 (8-20); Calcium 10.3 mg/dL (8.6-10.3); EGFR African American 130.9 (>60); EGFR Non-African American 108.2 (>60); Magnesium 2.2 mg/dL (1.9-2.7); Potassium 4.2 mmol/L (3.5-5.0)
[2020-05-16] MEDS: ORALSYR PO SCH (08:38)
[2020-05-16] MEDS: RISPERIDONE PO SCH (08:38)
[2020-05-16] MEDS: Dextran 70/Hypromellose Tears Eye Drops 15 ml BTL (for Artificials Tears) BOTH EYES SCH ×2 (08:40→23:02)
[2020-05-16] MEDS: Saline FLUSH-CENTRAL 10 ML SYRINGE CENT\\PICC SCH ×2 (08:41→20:31)
[2020-05-16] MEDS: Pantoprazole VIAL 40 MG VIAL IV SCH ×3 (08:43→16:32)
[2020-05-16] MEDS: Polyethylene Glycol 3350 17 GM PACKET PO SCH (08:43)
[2020-05-16] MEDS: Furosemide 20 mg/2 ml IV VIAL IV SCH ×3 (09:01→16:32)
[2020-05-16] MEDS: Enoxaparin 40 MG/0.4 ML SYR SUBCUT SCH (20:43)
[2020-05-17 06:46] LABS: ABS Basophils 0.1 10^3/ul (0-0.2); ABS Eosinophils 0.5 10^3/ul (0-0.6); ABS Lymphocytes 1.2 10^3/ul (1.0-4.8); ABS Monocytes 0.5 10^3/ul (0-0.8); ABS Neutrophils 4.4 10^3/ul (1.5-7.7); Eosinophil % 7.2 %; Hematocrit 37 % (42-52); Hemoglobin 11.8 g/dL (14.0-18.0); Lymphocyte % 18.2 %; Mean Corpuscular HGB Conc 33 g/dL (31-36); Mean Corpuscular Hemoglobin 32 pg (27-31); Mean Corpuscular Volume 99 fL (80-94); Mean Platelet Volume 6.8 fL (7.4-10.4); Platelet Count 481 10^3/uL (150-450); Red Blood Count 3.68 10^6 /uL (4.18-5.48); Red Cell Distribution Width 16 % (10-15); White Blood Count 6.8 10^3/uL (3.5-10.8)
[2020-05-17 07:04] LABS: Calcium 10.1 mg/dL (8.6-10.3); Potassium 4.1 mmol/L (3.5-5.0)
[2020-05-17 07:10] LABS: BUN/Creatinine Ratio 16.4 (8-20); EGFR African American 149.7 (>60); EGFR Non-African American 123.7 (>60)
[2020-05-17] MEDS: ORALSYR PO SCH (08:59)
[2020-05-17] MEDS: RISPERIDONE PO SCH (08:59)
[2020-05-17] MEDS: Furosemide 20 mg/2 ml IV VIAL IV SCH (08:59)
[2020-05-17] MEDS: Pantoprazole VIAL 40 MG VIAL IV SCH (09:00)
[2020-05-17] MEDS: Saline FLUSH-CENTRAL 10 ML SYRINGE CENT\\PICC SCH ×2 (09:02→21:59)
[2020-05-17] MEDS: Dextran 70/Hypromellose Tears Eye Drops 15 ml BTL (for Artificials Tears) BOTH EYES SCH ×2 (09:03→21:59)
[2020-05-17] MEDS: Polyethylene Glycol 3350 17 GM PACKET PO SCH (09:27)
[2020-05-17] MEDS: guaiFENesin DM SUGAR FREE 100 MG/10 MG 5 ML UDC PO SCH ×3 (15:36→22:36)
[2020-05-17] MEDS ORDERED: Lorazepam PYXIS KEY PRN (19:03)
[2020-05-17] MEDS: Enoxaparin 40 MG/0.4 ML SYR SUBCUT SCH (20:19)
[2020-05-18] MEDS: guaiFENesin DM SUGAR FREE 100 MG/10 MG 5 ML UDC PO SCH ×7 (02:47→22:51)
[2020-05-18] MEDS: Polyethylene Glycol 3350 17 GM PACKET PO SCH (09:56)
[2020-05-18] MEDS: Pantoprazole VIAL 40 MG VIAL IV SCH (09:56)
[2020-05-18] MEDS: Saline FLUSH-CENTRAL 10 ML SYRINGE CENT\\PICC SCH ×2 (09:59→20:09)
[2020-05-18] MEDS: Furosemide 20 mg/2 ml IV VIAL IV SCH (09:59)
[2020-05-18] MEDS: Dextran 70/Hypromellose Tears Eye Drops 15 ml BTL (for Artificials Tears) BOTH EYES SCH ×2 (10:00→21:22)
[2020-05-18] MEDS: Loperamide LIQ 2 MG/15 ML UDC PO PRN (10:02)
[2020-05-18] MEDS: RISPERIDONE PO SCH (10:06)
[2020-05-18] MEDS: ORALSYR PO SCH (10:06)
[2020-05-18] MEDS: LORazepam 2 mg VIAL 1 ml IV PUSH PRN (20:03)
[2020-05-18] MEDS: Enoxaparin 40 MG/0.4 ML SYR SUBCUT SCH (21:27)
[2020-05-19] MEDS ORDERED: Lactated Ringers 1000 ml BAG 1,000 ML IV SCH (02:00)
[2020-05-19] MEDS: guaiFENesin DM SUGAR FREE 100 MG/10 MG 5 ML UDC PO SCH ×4 (02:34→20:44)
[2020-05-19 04:31] LABS: ABS Basophils 0.1 10^3/ul (0-0.2); ABS Eosinophils 0.4 10^3/ul (0-0.6); ABS Lymphocytes 1.8 10^3/ul (1.0-4.8); ABS Monocytes 0.5 10^3/ul (0-0.8); ABS Neutrophils 4.4 10^3/ul (1.5-7.7); Eosinophil % 5.8 %; Hematocrit 35 % (42-52); Hemoglobin 11.5 g/dL (14.0-18.0); Lymphocyte % 24.5 %; Mean Corpuscular HGB Conc 33 g/dL (31-36); Mean Corpuscular Hemoglobin 33 pg (27-31); Mean Corpuscular Volume 100 fL (80-94); Mean Platelet Volume 6.9 fL (7.4-10.4); Nucleated Red Blood Cells % 0.1; Platelet Count 451 10^3/uL (150-450); Red Blood Count 3.53 10^6 /uL (4.18-5.48); Red Cell Distribution Width 15 % (10-15); White Blood Count 7.2 10^3/uL (3.5-10.8)
[2020-05-19 04:48] LABS: BUN/Creatinine Ratio 18.1 (8-20); EGFR African American 152.1 (>60); EGFR Non-African American 125.7 (>60); Potassium 4.3 mmol/L (3.5-5.0)
[2020-05-19] MEDS: LORazepam 2 mg VIAL 1 ml IV PUSH SCH (10:24)
[2020-05-19] MEDS ORDERED: fentaNYL 100 mcg/2 ml 50 MCG/ML VIAL IV SLOW PU ONE ×2 (12:52→16:35)
[2020-05-19] MEDS ORDERED: Midazolam 10 mg/10 ml VIAL 1 mg/ml 10 ml VIAL (10 mg) IV SLOW PU ONE (13:00)
[2020-05-19] MEDS ORDERED: Lorazepam PYXIS KEY PRN (16:15)
[2020-05-19] MEDS ORDERED: LORazepam 2 mg VIAL 1 ml IV PUSH ONE (16:15)
[2020-05-19] MEDS: Saline FLUSH-CENTRAL 10 ML SYRINGE CENT\\PICC SCH ×2 (19:08→20:45)
[2020-05-19] MEDS: Pantoprazole VIAL 40 MG VIAL IV SCH (19:08)
[2020-05-19] MEDS: Dextran 70/Hypromellose Tears Eye Drops 15 ml BTL (for Artificials Tears) BOTH EYES SCH ×2 (19:08→20:45)
[2020-05-19] MEDS: RISPERIDONE PO SCH (19:09)
[2020-05-19] MEDS: ORALSYR PO SCH (19:09)
[2020-05-19] MEDS: Polyethylene Glycol 3350 17 GM PACKET PO SCH (19:09)
[2020-05-19] MEDS: Enoxaparin 40 MG/0.4 ML SYR SUBCUT SCH (20:47)
[2020-05-20] MEDS: guaiFENesin DM SUGAR FREE 100 MG/10 MG 5 ML UDC PO SCH ×6 (02:01→21:44)
[2020-05-20] MEDS: LORazepam 2 mg VIAL 1 ml IV PUSH SCH ×3 (02:16→21:36)
[2020-05-20] MEDS: Polyethylene Glycol 3350 17 GM PACKET PO SCH (08:50)
[2020-05-20] MEDS: Pantoprazole VIAL 40 MG VIAL IV SCH (08:52)
[2020-05-20] MEDS: RISPERIDONE PO SCH (08:53)
[2020-05-20] MEDS: Dextran 70/Hypromellose Tears Eye Drops 15 ml BTL (for Artificials Tears) BOTH EYES SCH ×2 (08:53→21:38)
[2020-05-20] MEDS: ORALSYR PO SCH (08:53)
[2020-05-20] MEDS: Saline FLUSH-CENTRAL 10 ML SYRINGE CENT\\PICC SCH ×2 (08:56→21:38)
[2020-05-20] MEDS: Enoxaparin 40 MG/0.4 ML SYR SUBCUT SCH (21:37)
[2020-05-21] MEDS: guaiFENesin DM SUGAR FREE 100 MG/10 MG 5 ML UDC PO SCH ×6 (02:22→22:41)
[2020-05-21] MEDS: LORazepam 2 mg VIAL 1 ml IV PUSH PRN (03:18)
[2020-05-21] MEDS: LORazepam 2 mg VIAL 1 ml IV PUSH SCH ×2 (09:11→22:39)
[2020-05-21] MEDS: Pantoprazole VIAL 40 MG VIAL IV SCH (09:11)
[2020-05-21] MEDS: ORALSYR PO SCH (09:27)
[2020-05-21] MEDS: Polyethylene Glycol 3350 17 GM PACKET PO SCH (09:27)
[2020-05-21] MEDS: RISPERIDONE PO SCH (09:27)
[2020-05-21] MEDS: Dextran 70/Hypromellose Tears Eye Drops 15 ml BTL (for Artificials Tears) BOTH EYES SCH ×2 (09:44→22:37)
[2020-05-21] MEDS: Saline FLUSH-CENTRAL 10 ML SYRINGE CENT\\PICC SCH ×2 (09:44→22:36)
[2020-05-21] MEDS ORDERED: Furosemide 20 mg/2 ml IV VIAL IV SLOW PU ONE (10:13)
[2020-05-21] MEDS: Enoxaparin 40 MG/0.4 ML SYR SUBCUT SCH (22:37)
[2020-05-22] MEDS: guaiFENesin DM SUGAR FREE 100 MG/10 MG 5 ML UDC PO SCH ×6 (02:52→22:46)
[2020-05-22] MEDS: LORazepam 2 mg VIAL 1 ml IV PUSH PRN (04:23)
[2020-05-22 05:55] LABS: ABS Basophils 0.1 10^3/ul (0-0.2); ABS Eosinophils 0.4 10^3/ul (0-0.6); ABS Lymphocytes 1.3 10^3/ul (1.0-4.8); ABS Monocytes 0.5 10^3/ul (0-0.8); ABS Neutrophils 4.7 10^3/ul (1.5-7.7); Eosinophil % 5.6 %; Hematocrit 37 % (42-52); Hemoglobin 12.5 g/dL (14.0-18.0); Lymphocyte % 18.4 %; Mean Corpuscular HGB Conc 34 g/dL (31-36); Mean Corpuscular Hemoglobin 33 pg (27-31); Mean Corpuscular Volume 97 fL (80-94); Mean Platelet Volume 6.6 fL (7.4-10.4); Nucleated Red Blood Cells % 0.1; Platelet Count 463 10^3/uL (150-450); Red Blood Count 3.82 10^6 /uL (4.18-5.48); Red Cell Distribution Width 15 % (10-15)
[2020-05-22 06:21] LABS: Calcium 9.8 mg/dL (8.6-10.3)
[2020-05-22 06:26] LABS: BUN/Creatinine Ratio 14.1 (8-20); EGFR African American 138.7 (>60); EGFR Non-African American 114.6 (>60)
[2020-05-22] MEDS: LORazepam 2 mg VIAL 1 ml IV PUSH SCH ×2 (09:27→21:57)
[2020-05-22] MEDS: Pantoprazole VIAL 40 MG VIAL IV SCH (09:27)
[2020-05-22] MEDS: Polyethylene Glycol 3350 17 GM PACKET PO SCH (09:28)
[2020-05-22] MEDS: Dextran 70/Hypromellose Tears Eye Drops 15 ml BTL (for Artificials Tears) BOTH EYES SCH ×2 (09:29→22:46)
[2020-05-22] MEDS: ORALSYR PO SCH (09:29)
[2020-05-22] MEDS: Saline FLUSH-CENTRAL 10 ML SYRINGE CENT\\PICC SCH ×2 (09:29→21:14)
[2020-05-22] MEDS: RISPERIDONE PO SCH (09:29)
[2020-05-22] MEDS: Enoxaparin 40 MG/0.4 ML SYR SUBCUT SCH (22:45)
[2020-05-23] MEDS: guaiFENesin DM SUGAR FREE 100 MG/10 MG 5 ML UDC PO SCH ×6 (02:07→23:44)
[2020-05-23] MEDS: LORazepam 2 mg VIAL 1 ml IV PUSH PRN (03:26)
[2020-05-23] MEDS: Saline FLUSH-CENTRAL 10 ML SYRINGE CENT\\PICC SCH ×2 (08:59→20:31)
[2020-05-23] MEDS: Pantoprazole VIAL 40 MG VIAL IV SCH (10:01)
[2020-05-23] MEDS: RISPERIDONE PO SCH (10:01)
[2020-05-23] MEDS: LORazepam 2 mg VIAL 1 ml IV PUSH SCH ×2 (10:01→20:29)
[2020-05-23] MEDS: ORALSYR PO SCH (10:01)
[2020-05-23] MEDS: Polyethylene Glycol 3350 17 GM PACKET PO SCH (10:02)
[2020-05-23] MEDS: Dextran 70/Hypromellose Tears Eye Drops 15 ml BTL (for Artificials Tears) BOTH EYES SCH ×2 (10:02→20:29)
[2020-05-23] MEDS: Enoxaparin 40 MG/0.4 ML SYR SUBCUT SCH (20:30)
[2020-05-24] MEDS: guaiFENesin DM SUGAR FREE 100 MG/10 MG 5 ML UDC PO SCH ×6 (03:28→23:42)
[2020-05-24 05:38] LABS: ABS Basophils 0.1 10^3/ul (0-0.2); ABS Eosinophils 0.3 10^3/ul (0-0.6); ABS Lymphocytes 1.4 10^3/ul (1.0-4.8); ABS Monocytes 0.6 10^3/ul (0-0.8); ABS Neutrophils 5.1 10^3/ul (1.5-7.7); Eosinophil % 4.3 %; Hematocrit 36 % (42-52); Hemoglobin 11.9 g/dL (14.0-18.0); Lymphocyte % 19.2 %; Mean Corpuscular HGB Conc 33 g/dL (31-36); Mean Corpuscular Hemoglobin 33 pg (27-31); Mean Corpuscular Volume 99 fL (80-94); Mean Platelet Volume 6.5 fL (7.4-10.4); Nucleated Red Blood Cells % 0.1; Platelet Count 462 10^3/uL (150-450); Red Blood Count 3.66 10^6 /uL (4.18-5.48); Red Cell Distribution Width 15 % (10-15); White Blood Count 7.5 10^3/uL (3.5-10.8)
[2020-05-24 06:00] LABS: Albumin 3.5 g/dL (3.2-5.2); Albumin/Globulin Ratio 1.1 (1-3); BUN/Creatinine Ratio 13.2 (8-20); Calcium 9.7 mg/dL (8.6-10.3); EGFR African American 142.9 (>60); EGFR Non-African American 118.1 (>60); Globulin 3.2 g/dL (2-4); Magnesium 1.9 mg/dL (1.9-2.7); Potassium 4.1 mmol/L (3.5-5.0); Total Bilirubin 0.2 mg/dL (0.2-1.0); Total Protein 6.7 g/dL (6.4-8.9)
[2020-05-24] MEDS: Saline FLUSH-CENTRAL 10 ML SYRINGE CENT\\PICC SCH ×2 (08:11→20:01)
[2020-05-24] MEDS ORDERED: Polyethylene Glycol 3350 17 GM PACKET PO PRN (09:49)
[2020-05-24] MEDS: ORALSYR PO SCH (10:58)
[2020-05-24] MEDS: RISPERIDONE PO SCH (10:58)
[2020-05-24] MEDS: LORazepam 2 mg VIAL 1 ml IV PUSH SCH ×2 (11:08→20:00)
[2020-05-24] MEDS: Pantoprazole VIAL 40 MG VIAL IV SCH (11:08)
[2020-05-24] MEDS: Dextran 70/Hypromellose Tears Eye Drops 15 ml BTL (for Artificials Tears) BOTH EYES SCH ×2 (11:12→22:49)
[2020-05-24] MEDS: Polyethylene Glycol 3350 17 GM PACKET PO SCH (11:15)
[2020-05-24] MEDS ORDERED: Midazolam 2 mg/2 ml VIAL 1 mg/ml 2 ml VIAL (2 mg) IV SLOW PU ONE (11:57)
[2020-05-24] MEDS ORDERED: Naloxone 0.4 mg VIAL 0.4 mg/ml 1 ml VIAL ONE (12:01)
[2020-05-24] MEDS ORDERED: Midazolam 5 mg/5 ml VIAL 1 mg/ml 5 ml VIAL (5 mg) ONE (12:01)
[2020-05-24] MEDS ORDERED: fentaNYL 100 mcg/2 ml 50 MCG/ML VIAL ONE (12:02)
[2020-05-24] MEDS ORDERED: Flumazenil 0.5 mg/5 ml 0.1 MG/ML 5 ml VIAL ONE (12:02)
[2020-05-24] MEDS: LORazepam 2 mg VIAL 1 ml IV PUSH PRN (21:50)
[2020-05-24] MEDS ORDERED: Lorazepam PYXIS KEY PRN (22:13)
[2020-05-24] MEDS ORDERED: LORazepam 2 mg VIAL 1 ml IV PUSH ONE (22:14)
[2020-05-24] MEDS: Enoxaparin 40 MG/0.4 ML SYR SUBCUT SCH (22:49)
[2020-05-25] MEDS: guaiFENesin DM SUGAR FREE 100 MG/10 MG 5 ML UDC PO SCH ×6 (00:09→22:44)
[2020-05-25] MEDS: Saline FLUSH-CENTRAL 10 ML SYRINGE CENT\\PICC SCH ×2 (08:08→22:42)
[2020-05-25] MEDS: LORazepam 2 mg VIAL 1 ml IV PUSH SCH ×2 (10:09→22:44)
[2020-05-25] MEDS: Pantoprazole VIAL 40 MG VIAL IV SCH (10:09)
[2020-05-25] MEDS: Dextran 70/Hypromellose Tears Eye Drops 15 ml BTL (for Artificials Tears) BOTH EYES SCH ×2 (10:10→22:42)
[2020-05-25] MEDS: ORALSYR PO SCH (10:41)
[2020-05-25] MEDS: RISPERIDONE PO SCH (10:41)
[2020-05-25] MEDS: Enoxaparin 40 MG/0.4 ML SYR SUBCUT SCH (22:42)
[2020-05-26] MEDS: guaiFENesin DM SUGAR FREE 100 MG/10 MG 5 ML UDC PO SCH ×6 (01:45→22:01)
[2020-05-26 04:49] LABS: ABS Basophils 0.1 10^3/ul (0-0.2); ABS Eosinophils 0.3 10^3/ul (0-0.6); ABS Lymphocytes 1.7 10^3/ul (1.0-4.8); ABS Monocytes 0.6 10^3/ul (0-0.8); ABS Neutrophils 4.8 10^3/ul (1.5-7.7); Eosinophil % 4.5 %; Hematocrit 36 % (42-52); Hemoglobin 11.8 g/dL (14.0-18.0); Lymphocyte % 22.2 %; Mean Corpuscular HGB Conc 33 g/dL (31-36); Mean Corpuscular Hemoglobin 32 pg (27-31); Mean Corpuscular Volume 98 fL (80-94); Mean Platelet Volume 6.7 fL (7.4-10.4); Platelet Count 476 10^3/uL (150-450); Red Blood Count 3.66 10^6 /uL (4.18-5.48); Red Cell Distribution Width 15 % (10-15); White Blood Count 7.5 10^3/uL (3.5-10.8)
[2020-05-26 05:05] LABS: BUN/Creatinine Ratio 11.5 (8-20); Calcium 9.9 mg/dL (8.6-10.3); EGFR African American 138.7 (>60); EGFR Non-African American 114.6 (>60); Potassium 4.7 mmol/L (3.5-5.0)
[2020-05-26] MEDS: Saline FLUSH-CENTRAL 10 ML SYRINGE CENT\\PICC SCH ×2 (09:15→20:59)
[2020-05-26] MEDS: RISPERIDONE PO SCH (09:24)
[2020-05-26] MEDS: ORALSYR PO SCH (09:24)
[2020-05-26] MEDS: Pantoprazole VIAL 40 MG VIAL IV SCH (09:32)
[2020-05-26] MEDS: Dextran 70/Hypromellose Tears Eye Drops 15 ml BTL (for Artificials Tears) BOTH EYES SCH ×3 (09:37→22:58)
[2020-05-26] MEDS: LORazepam 2 mg VIAL 1 ml IV PUSH SCH (09:44)
[2020-05-26] MEDS: Enoxaparin 40 MG/0.4 ML SYR SUBCUT SCH (20:54)
[2020-05-27] MEDS: guaiFENesin DM SUGAR FREE 100 MG/10 MG 5 ML UDC PO SCH ×3 (02:45→11:46)
[2020-05-27] MEDS: Saline FLUSH-CENTRAL 10 ML SYRINGE CENT\\PICC SCH (11:45)
[2020-05-27] MEDS: Dextran 70/Hypromellose Tears Eye Drops 15 ml BTL (for Artificials Tears) BOTH EYES SCH ×2 (11:45→21:50)
[2020-05-27] MEDS ORDERED: guaiFENesin DM SUGAR FREE 100 MG/10 MG 5 ML UDC PO PRN (13:08)
[2020-05-27] MEDS: Enoxaparin 40 MG/0.4 ML SYR SUBCUT SCH (21:46)
[2020-05-28] MEDS: Dextran 70/Hypromellose Tears Eye Drops 15 ml BTL (for Artificials Tears) BOTH EYES SCH ×2 (08:26→19:51)
[2020-05-28] MEDS ORDERED: risperiDONE-M 1 mg Oradis TAB PO SCH (09:00)
[2020-05-28] MEDS: Enoxaparin 40 MG/0.4 ML SYR SUBCUT SCH (19:50)
[2020-05-28] MEDS: Magnesium Hydroxide LIQ 30 ML UDC PO PRN (19:52)
[2020-05-29] MEDS: Dextran 70/Hypromellose Tears Eye Drops 15 ml BTL (for Artificials Tears) BOTH EYES SCH ×2 (08:52→19:10)
[2020-05-29] MEDS ORDERED: guaiFENesin DM SUGAR FREE 100 MG/10 MG 5 ML UDC PO PRN (12:44)
[2020-05-29] MEDS: Enoxaparin 40 MG/0.4 ML SYR SUBCUT SCH (20:35)
[2020-05-30] MEDS: Dextran 70/Hypromellose Tears Eye Drops 15 ml BTL (for Artificials Tears) BOTH EYES SCH ×2 (08:07→19:38)
[2020-05-30] MEDS ORDERED: Furosemide 20 mg/2 ml IV VIAL IV ONE (08:09)
[2020-05-30] MEDS: Enoxaparin 40 MG/0.4 ML SYR SUBCUT SCH (19:38)
[2020-05-31] MEDS: Dextran 70/Hypromellose Tears Eye Drops 15 ml BTL (for Artificials Tears) BOTH EYES SCH (08:14)
[2020-05-31 08:33] VITALS: BP 101/68
== END 2020-05-31 12:25 | disposition home or self-care (01) | DRG 4 ==
LOC: MED 09:42 → ED 09:42 → MED 16:59 → ICU 04-14 04:30 → SSU 05-08 17:29 → ICU 05-24 12:57 → SSU 05-24 14:14
PROVIDERS: ADMIT Internal Medicine; ATTEND Internal Medicine